=== PATIENT | male | born 1975 | race Caucasian/White ===

== ENCOUNTER 2017-05-30 08:18 | Emergency (ER) | payer BC, OTHER ==
[2017-05-30 08:40] VITALS: TEMP 97.9; O2SAT 99
--- NOTE | 2017-05-30 08:43 | C.PDOC ---
History Of Present Illness 41 yr old male presents to the ER with complaints of right ear pain for the past few days. Patient reports going [place] the [employer] [place] and states the pain started afterwards. Patient denies fever, chills, hearing loss, ear discharge, headache, weakness or numbness. Time Seen by Provider: 05/30/17 08:29 Chief Complaint (Nursing): ENT Problem History Per: Patient History/Exam Limitations: no limitations Onset/Duration Of Symptoms: Days Past Medical History Reviewed: Historical Data, Nursing Documentation, Vital Signs Vital Signs: Last Vital Signs Temp 97.9 F 05/30/17 08:23 Pulse 69 05/30/17 08:23 Resp 16 05/30/17 08:23 BP 113/75 05/30/17 08:23 Pulse Ox 99 05/30/17 08:43 - Medical History PMH: Asthma, Hypercholesterolemia Surgical History: Appendectomy Family History: States: No Known Family Hx - Social History Hx Tobacco Use: No Hx Alcohol Use: No Hx Substance Use: No - Immunization History Hx Tetanus Toxoid Vaccination: No Hx Influenza Vaccination: No Hx Pneumococcal Vaccination: No Review Of Systems Except As Marked, All Systems Reviewed And Found Negative. Constitutional: Negative for: Fever, Chills ENT: Positive for: Ear Pain (Right). Negative for: Ear Discharge Neurological: Negative for: Weakness, Numbness, Headache Physical Exam - Physical Exam Appears: Non-toxic, No Acute Distress Skin: Warm, Dry, No Rash Head: Atraumatic, Normacephalic Ear(s): Left: Normal, Right: Other ((+) Ear canal, mild edema. (-) TM intact without erythema. No redness or tenderness over the mastoid. No preauricular lymph node. ) Throat: Normal, No Erythema, No Exudate, No Drooling Neck: Normal, Normal ROM, Supple Extremity: Normal ROM, No Swelling Neurological/Psych: Oriented x3, Normal Speech ED Course And Treatment O2 Sat by Pulse Oximetry: 99 (RA) Pulse Ox Interpretation: Normal Disposition - Disposition Referrals: Juan Alberto Escobedo MD [Staff Provider] - Dolly Bhatia MD [Non-Staff] - Disposition: HOME/ ROUTINE Disposition Time: 08:43 Condition: GOOD Additional Instructions: Please follow up with your doctor. The contact for the ENT specialist is also provided. Return to the ER for any worsening symptoms, fever, redness or pain or swelling behind the ear or in the face, if you are not any better in 2 days, or for any other concerns. Prescriptions: Ciprofloxacin HCl [Cipro] 500 mg PO BID #14 tablet Ciprofloxacin/Dexamethasone [Ciprodex 0.3%-0.1% 7.5 Ml] 4 drop OT QID #1 bottle Instructions: Otitis Externa (ED) Forms: [facility] (Y[place]i) - Clinical Impression Clinical Impression: Otitis externa - Scribe Statement The provider has reviewed the documentation as recorded by the Timothy Mcpherson Provider Attestation: All medical record entries made by the Timothy were at my direction and personally dictated by me. I have reviewed the chart and agree that the record accurately reflects my personal performance of the history, physical exam, medical decision making, and the department course for this patient. I have also personally directed, reviewed, and agree with the discharge instructions and disposition.
[2017-05-30 09:17] VITALS: BP 110/72; PULSE 68; RESP 18
== END 2017-05-30 09:17 | disposition home or self-care (01) ==
LOC: C.ER 08:18
DX: H60.91 Unspecified otitis externa, right ear (principal)
CPT/HCPCS: 96372; 99283; J1885

== ENCOUNTER 2018-01-05 09:38 | Inpatient (IN) | payer BC ==
[2018-01-05] MEDS ORDERED: Sodium Chloride 0.9% 1,000 ML IV STA (11:31)
[2018-01-05] MEDS ORDERED: Sodium Chloride 0.9% 1,000 ML ONE ×2 (12:07→12:09)
[2018-01-05] MEDS ORDERED: Morphine 4 MG/ML VIAL ONE ×2 (12:08→14:37)
[2018-01-05 12:17] LABS: BASO # 0.1 K/uL (0.0-0.2); BASO % 0.6 % (0.0-2.0); EOS # 0.2 K/uL (0.0-0.7); EOS % 1.6 % (0.0-4.0); HEMOGLOBIN 15.3 g/dL (12.0-18.0); LYMPH # 3.1 K/uL (1.0-4.3); LYMPH % 21.6 % (20.0-40.0); MEAN CORPUSCULAR HEMOGLOBIN 31.8 pg (27.0-31.0); MEAN CORPUSCULAR HGB CONC 34.9 g/dL (33.0-37.0); MEAN PLATELET VOLUME 7.5 fL (7.2-11.7); MONO % 6.8 % (0.0-10.0); NEUT # 10.1 K/uL (1.8-7.0); NEUT % 69.4 % (50.0-75.0); NRBC % 0.2 % (0.0-2.0); RBC 4.81 Mil/uL (4.40-5.90); WHITE BLOOD COUNT 14.5 K/uL (4.8-10.8)
[2018-01-05 12:19] LABS: INR 1.2; PROTHROMBIN TIME 13.4 SECONDS (9.7-12.2)
[2018-01-05 12:20] LABS: MEAN CELL VOLUME 91.1 fL (80.0-94.0)
[2018-01-05 12:26] LABS: ALB/GLOB RATIO 0.9 (1.0-2.1); ALBUMIN 4.1 g/dL (3.5-5.0); ALT/SGPT 39 U/L (21-72); AST/SGOT 31 U/L (17-59); BLOOD UREA NITROGEN 12 mg/dL (9-20); GFR AFRICAN-AMERICAN > 60; GFR NON-AFRICAN AMERICAN > 60
[2018-01-05] MEDS ORDERED: Iodixanol 320 MG/ML 100 ML BOTTLE IV ONE (13:03)
[2018-01-05] MEDS ORDERED: Piperacillin/Tazobact 3.375 gm 100 ML IV STA (13:05)
--- NOTE | 2018-01-05 13:21 | C.PDOC ---
History Of Present Illness 42 year old male presents to the ED c/o perirectal abscess for the past 4 days. Patient reports yesterday had a fever of 101. Patient denies weakness, numbness , CP, SOB, nausea, vomit, diarrhea. Time Seen by Provider: 01/05/18 11:26 Chief Complaint (Nursing): Abnormal Skin Integrity History Per: Patient History/Exam Limitations: no limitations Onset/Duration Of Symptoms: Days Current Symptoms Are (Timing): Still Present Location Of Injury: Left: Buttock (perirectal abscess) Quality Of Symptoms: Painful, Swollen Recent travel outside of the [place]: No Additional History Per: Patient Past Medical History Reviewed: Historical Data, Nursing Documentation, Vital Signs Vital Signs: Last Vital Signs Temp 100.5 F H 01/05/18 13:56 Pulse 100 H 01/05/18 13:56 Resp 18 01/05/18 13:56 BP 109/76 01/05/18 13:56 Pulse Ox 99 01/05/18 16:26 - Medical History PMH: Asthma, Hypercholesterolemia Surgical History: Appendectomy Family History: States: Unknown Family Hx - Social History Hx Tobacco Use: No Hx Alcohol Use: No Hx Substance Use: No - Immunization History Hx Tetanus Toxoid Vaccination: No Hx Influenza Vaccination: No Hx Pneumococcal Vaccination: No Review Of Systems Constitutional: Negative for: Fever, Chills Cardiovascular: Negative for: Chest Pain Respiratory: Negative for: Shortness of Breath Gastrointestinal: Negative for: Abdominal Pain Musculoskeletal: Positive for: Back Pain Skin: Positive for: Other (perirectal abscess) Neurological: Negative for: Weakness, Numbness Physical Exam - Physical Exam Appears: Non-toxic, No Acute Distress Skin: Normal Color, Warm, Dry, Other (opening 1 in abive anal area with purulenrt drainage, tender ) Head: Atraumatic, Normacephalic Eye(s): bilateral: Normal Inspection Nose: No Discharge Oral Mucosa: Moist Back: Other (tenderness to wound 1 inch above anal area) Extremity: Normal ROM, No Tenderness, Capillary Refill (< 2 seconds), No Swelling Pulses: Left Dorsalis Pedis: Normal, Right Dorsalis Pedis: Normal Neurological/Psych: Oriented x3, Normal Motor, Normal Sensation Gait: Steady ED Course And Treatment - Laboratory Results Result Diagrams: 01/05/18 11:31 01/05/18 12:06 ECG: Interpreted By Me, Viewed By Me ECG Rhythm: Sinus Rhythm, R BBB (incomplete) Rate From EC (BPM) O2 Sat by Pulse Oximetry: 99 (On RA) Pulse Ox Interpretation: Normal - CT Scan/US Pelvis CT Other Rad Studies (CT/US): Read By Radiologist, Radiology Report Reviewed CT/US Interpretation: Accession No. : [id number]. Patient Name / ID : LILA Mendez / [id number]. Exam Date : 01/05/2018 13:22:13 ( Approved ). Study Comment : Sex / Age : M / 42Y. Creator : Lucy Pryor. Dictator : Joseph Rose MD. Merit System Director : Reservoir Caretaker : Joseph Rose MD. Approver2 : Report Date : 01/05/2018 13:37:12. My Comment : . PROCEDURE: CT Pelvis with contrast. HISTORY: perirectal abscess. COMPARISON: None. TECHNIQUE: Contiguous axial images of the pelvis with intravenous contrast only. Coronal and sagittal reformats generated. Contrast dose: Visipaque 320, 100 cc. Radiation dose: Total exam DLP = 865.47 mGy-cm. This CT exam was performed using one or more of the following dose reduction techniques: Automated exposure control, adjustment of the mA and/or kV according to patient size, and/or use of iterative reconstruction technique. FINDINGS: In the right perianal space, there is local soft tissue edema posterior to the level of the anus extending to the midline and slightly to the left. Local lucency is appreciate within this density measuring 3.5 x 1.6 cm suggestive of a small abscess. BLADDER: Unremarkable. No mass. REPRODUCTIVE ORGANS: Unremarkable. VISUALIZED BOWEL: Sigmoid diverticulosis is identified without diverticulitis as imaged. A linear hyperdensity at the cecal base may reflect surgical clips status post prior appendectomy. The appendix is not identified. Clinically correlate appear. PERITONEUM: A limited matter perineal fat is identified within a small right inguinal hernia without bowel involvement. No free fluid. No free air. LYMPH NODES: Unremarkable. No enlarged lymph nodes. VASCULATURE: Unremarkable. BONES: No fracture or focal lesion. OTHER FINDINGS: None. IMPRESSION: A small right perianal abscess is appreciated inferiorly slightly to the left measuring 3.5 x 1.6 cm. Nonacute sigmoid diverticulosis. Findings suggest prior right appendectomy. Clinically correlate. Small right inguinal hernia contains only limited amount of peritoneal fat. Progress Note: Patient was treated with Morphine, IVF and Zosyn IVPB. Patient had CT that was pos for perianal abscess, WBC elevated. case was d/w pt's PMD who requested prison classification counselor Surgery consult from Dr. Brink. Case was d /w who requested patient be NPO for surgery and accepted patient for an admission to his service. requested for Internal medicine consult. Contacted , case discussed. Patient developed fever , Tylenol IV was ordered. Medical Decision Making Medical Decision Making: Impression: perirectal abscess Plan: * CT scan pelvis * Labs * Morphine 4 mg IVP * IV fluids * Zosyn 100 ml IV * Blood culture Disposition - Disposition Disposition: HOSPITALIZED Disposition Time: 14:36 Condition: FAIR - Clinical Impression Clinical Impression: Perianal abscess - PA / MEDICAL RECORDS ADMINISTRATOR / Resident Statement MD/DO has reviewed & agrees with the documentation as recorded. - Scribe Statement The provider has reviewed the documentation as recorded by the Scribe Mushtaq Conrad All medical record entries made by the Scribe were at my direction and personally dictated by me. I have reviewed the chart and agree that the record accurately reflects my personal performance of the history, physical exam, medical decision making, and the department course for this patient. I have also personally directed, reviewed, and agree with the discharge instructions and disposition. Decision To Admit - Pt Status Changed To: Hospital Disposition Of: Inpatient - Admit Certification Admit to Inpatient:: After my assessment, the patient will require hospitalization for at least two midnights. This is because of the severity of symptoms shown, intensity of services needed, and/or the medical risk in this patient being treated as an outpatient. - InPatient: Physician Admission Certification: I certify that this patient requires 2 or more midnights of care for the following reason:: Patient will need to go OR and will need more than 2 days of hospitalization. - . Bed Request Type: Regular Patient Diagnosis: Perianal abscess
[2018-01-05] MEDS ORDERED: Piperacillin/Tazobact 3.375 gm 100 ML IVPB ONE (13:45)
--- NOTE | 2018-01-05 14:11 | CT ---
PROCEDURE: CT Pelvis with contrast HISTORY: perirectal abscess COMPARISON: None. TECHNIQUE: Contiguous axial images of the pelvis with intravenous contrast only. Coronal and sagittal reformats generated. Contrast dose: Visipaque 320, 100 cc Radiation dose: Total exam DLP = 865.47 mGy-cm. This CT exam was performed using one or more of the following dose reduction techniques: Automated exposure control, adjustment of the mA and/or kV according to patient size, and/or use of iterative reconstruction technique. FINDINGS: In the right perianal space, there is local soft tissue edema posterior to the level of the anus extending to the midline and slightly to the left. Local lucency is appreciate within this density measuring 3.5 x 1.6 cm suggestive of a small abscess. BLADDER: Unremarkable. No mass. REPRODUCTIVE ORGANS: Unremarkable. VISUALIZED BOWEL: Sigmoid diverticulosis is identified without diverticulitis as imaged. A linear hyperdensity at the cecal base may reflect surgical clips status post prior appendectomy. The appendix is not identified. Clinically correlate appear PERITONEUM: A limited matter perineal fat is identified within a small right inguinal hernia without bowel involvement. No free fluid. No free air. LYMPH NODES: Unremarkable. No enlarged lymph nodes. VASCULATURE: Unremarkable. BONES: No fracture or focal lesion. OTHER FINDINGS: None. IMPRESSION: A small right perianal abscess is appreciated inferiorly slightly to the left measuring 3.5 x 1.6 cm. Nonacute sigmoid diverticulosis. Findings suggest prior right appendectomy. Clinically correlate. Small right inguinal hernia contains only limited amount of peritoneal fat.
[2018-01-05 14:13] LABS: SQUAMOUS EPITHIAL 1 /hpf (0-5); URINE BILIRUBIN NEGATIVE (NEGATIVE); URINE BLOOD NEGATIVE (NEGATIVE); URINE CLARITY Clear (Clear); URINE COLOR Yellow (YELLOW); URINE GLUCOSE (UA) NORMAL (Normal); URINE LEUKOCYTE ESTERASE NEG Leu/uL (Negative); URINE PROTEIN 1+ mg/dL (NEGATIVE)
[2018-01-05] MEDS ORDERED: Acetaminophen IV 1,000 MG in Premixed IV 1 EA IV STA (14:32)
[2018-01-05] MEDS ORDERED: Propofol 10 mg/ml Inj (20 ML) ONE (17:41)
[2018-01-05] MEDS ORDERED: Midazolam 2 MG/2 ML VIAL ONE (17:41)
[2018-01-05] MEDS ORDERED: Oxycodone/Acetaminophen 5/325 mg Tab PO PRN (18:04)
[2018-01-05] MEDS: HYDROmorphone 0.5 mg/0.5 ml ISec IVP PRN ×4 (18:20→18:50)
[2018-01-05] MEDS ORDERED: HYDROmorphone 0.5 mg/0.5 ml ISec ONE (18:30)
[2018-01-05] MEDS ORDERED: Piperacill/Tazo 3.375gm in Dex 3.375 GM/50 ML BAG IVPB SCH (19:00)
[2018-01-05] MEDS: Dextrose 5%/0.45% NS 1,000 ML IV SCH (20:28)
[2018-01-05] MEDS: Morphine 4 MG/ML VIAL IVP PRN (21:11)
--- NOTE | 2018-01-05 23:20 | CP.PCM.HP ---
History of Present Illness - History of Present Illness History of Present Illness: History Of Present Illness 42 year old male presents to the ED c/o perirectal abscess for the past 4 days. Patient reports yesterday had a fever of 101. Patient denies weakness, numbness , CP, SOB, nausea, vomit, diarrhea. Past Patient History - Past Social History Smoking Status: Light Smoker < 10 Cigarettes Daily - CARDIAC Hx Hypercholesterolemia: Yes - PULMONARY Hx Asthma: Yes - MUSCULOSKELETAL/RHEUMATOLOGICAL Hx Falls: No - PSYCHIATRIC Hx Substance Use: No - SURGICAL HISTORY Hx Appendectomy: Yes - ANESTHESIA Hx Anesthesia: Yes Hx Anesthesia Reactions: No Hx Malignant Hyperthermia: No Has any member of the family had a problem w/ anesthesia?: No Meds Allergies/Adverse Reactions: Allergies Allergy/AdvReac Type Severity Reaction Status Date / Time No Known Allergies Allergy Verified 01/05/18 10:20 Results - Vital Signs Recent Vital Signs: Last Vital Signs Temp 98.7 F 01/05/18 20:30 Pulse 85 01/05/18 20:30 Resp 20 01/05/18 20:30 BP 108/74 01/05/18 20:30 Pulse Ox 95 01/05/18 20:30 - Labs Result Diagrams: 01/05/18 11:31 01/05/18 12:06 Labs: Laboratory Results - last 24 hr 01/05/18 01/05/18 01/05/18 11:31 12:06 12:06 WBC 14.5 H RBC 4.81 Hgb 15.3 Hct 43.8 MCV 91.1 D MCH 31.8 H MCHC 34.9 RDW 13.0 Plt Count 244 MPV 7.5 Neut % (Auto) 69.4 Lymph % (Auto) 21.6 Dane % (Auto) 6.8 Eos % (Auto) 1.6 Baso % (Auto) 0.6 Neut # (Auto) 10.1 H Lymph # (Auto) 3.1 Dane # (Auto) 1.0 H Eos # (Auto) 0.2 Baso # (Auto) 0.1 PT 13.4 H INR 1.2 APTT 30 Sodium 141 Potassium 4.3 Chloride 100 Carbon Dioxide 26 Anion Gap 19 BUN 12 Creatinine 1.0 Est GFR ( Amer) > 60 Est GFR (Non-Af Amer) > 60 Random Glucose 87 Calcium 9.0 Total Bilirubin 1.1 AST 31 ALT 39 Alkaline Phosphatase 63 Total Protein 8.7 H Albumin 4.1 Globulin 4.5 H Albumin/Globulin Ratio 0.9 L Urine Color Urine Clarity Urine pH Ur Specific [place] Urine Protein Urine Glucose (UA) Urine Ketones Urine Blood Urine Nitrate Urine Bilirubin Urine Urobilinogen Ur Leukocyte Esterase Urine WBC (Auto) Ur Squamous Epith Cells 01/05/18 14:05 WBC RBC Hgb Hct MCV MCH MCHC RDW Plt Count MPV Neut % (Auto) Lymph % (Auto) Dane % (Auto) Eos % (Auto) Baso % (Auto) Neut # (Auto) Lymph # (Auto) Dane # (Auto) Eos # (Auto) Baso # (Auto) PT INR APTT Sodium Potassium Chloride Carbon Dioxide Anion Gap BUN Creatinine Est GFR ( Amer) Est GFR (Non-Af Amer) Random Glucose Calcium Total Bilirubin AST ALT Alkaline Phosphatase Total Protein Albumin Globulin Albumin/Globulin Ratio Urine Color Yellow Urine Clarity Clear Urine pH 5.0 Ur Specific [place] 1.040 H Urine Protein 1+ H Urine Glucose (UA) Normal Urine Ketones Negative Urine Blood Negative Urine Nitrate Negative Urine Bilirubin Negative Urine Urobilinogen 4.0 Ur Leukocyte Esterase Neg Urine WBC (Auto) 1 Ur Squamous Epith Cells 1 Assessment & Plan (1) Perianal abscess Status: Acute
[2018-01-06] MEDS: Morphine 4 MG/ML VIAL IVP PRN ×6 (01:20→22:42)
[2018-01-06] MEDS: Piperacill/Tazo 3.375gm in Dex 3.375 GM/50 ML BAG IVPB SCH ×4 (03:02→21:40)
--- NOTE | 2018-01-06 03:04 | OP ---
PROCEDURE DATE: 01/05/2018 PREOPERATIVE DIAGNOSIS: Rectal abscess. POSTOPERATIVE DIAGNOSES: Rectal and pelvic abscess with fistula. PROCEDURE PERFORMED: Proctosigmoidoscopy, anoscopy, incision and drainage of rectal and pelvic abscess with fistulotomy. SURGEON: Jesse Brink MD ANESTHESIA: General. BLOOD LOSS: 30 mL. POSTOP CONDITION: Stable. INDICATIONS FOR SURGERY: This is a 42-year-old male with a painful rectal abscess admitted through the emergency room, now taken to the operating room on the day of admission for urgent drainage. GROSS FINDINGS: The patient had an abscess located at the 5 o'clock level of the anus. It was associated with a fistula into the midline of the anal canal and consistent with Goodsall's rule. The abscess was extended into the ischiorectal space, making essentially a pelvic abscess also. DESCRIPTION OF PROCEDURE: The patient was taken to the operating room. General anesthesia was administered. Proctosigmoidoscopy was carried out but limited due to poor patient prep and rectal stool. Next, anoscopy was carried out with the above findings. An incision was made into the abscess and a probe was easily passed into the anal canal. The overlying tissue was divided and bled vigorously. Bleeding blood vessel was repaired. The wound was irrigated with saline. The pus was drained and cultured. The pus was thoroughly explored into the ischiorectal space and also drained. More cultures were taken. Wound was irrigated with saline. A partial tissue flap closure was performed. Central portion of wound was packed open with saline gauze. The patient tolerated procedure well. Returned to recovery room in stable condition. Jesse Brink MD
[2018-01-06] MEDS: Lactated Ringer's 1,000 ML IV SCH (04:15)
[2018-01-06] MEDS: Dextrose 5%/0.45% NS 1,000 ML IV SCH ×3 (06:45→18:40)
[2018-01-06 06:53] LABS: BASO # 0.1 K/uL (0.0-0.2); BASO % 0.5 % (0.0-2.0); EOS # 0.2 K/uL (0.0-0.7); EOS % 1.1 % (0.0-4.0); LYMPH # 2.8 K/uL (1.0-4.3); MEAN CELL VOLUME 90.8 fL (80.0-94.0); MEAN CORPUSCULAR HEMOGLOBIN 31.2 pg (27.0-31.0); MEAN CORPUSCULAR HGB CONC 34.4 g/dL (33.0-37.0); MEAN PLATELET VOLUME 7.6 fL (7.2-11.7); MONO # 1.1 K/uL (0.0-0.8); MONO % 7.6 % (0.0-10.0); NEUT # 9.9 K/uL (1.8-7.0); NEUT % 70.8 % (50.0-75.0); RBC 4.1 Mil/uL (4.40-5.90); RED CELL DISTRIBUTION WIDTH 12.7 % (11.5-14.5)
[2018-01-06 07:03] LABS: HEMOGLOBIN 12.8 g/dL (12.0-18.0)
[2018-01-06 07:12] LABS: BLOOD UREA NITROGEN 12 mg/dL (9-20); CALCIUM 8.4 mg/dl (8.6-10.4); GFR AFRICAN-AMERICAN > 60; GFR NON-AFRICAN AMERICAN > 60
[2018-01-06] MEDS ORDERED: Midazolam 2 MG/2 ML VIAL ONE (15:33)
[2018-01-06] MEDS ORDERED: Propofol 10 mg/ml Inj (20 ML) ONE (15:33)
[2018-01-06] MEDS: HYDROmorphone 0.5 mg/0.5 ml ISec IVP PRN ×3 (16:17→16:48)
[2018-01-06] MEDS ORDERED: HYDROmorphone 0.5 mg/0.5 ml ISec ONE ×2 (16:17→16:27)
[2018-01-06] MEDS ORDERED: Lactated Ringer's 1,000 ML IV SCH (16:30)
--- NOTE | 2018-01-06 17:22 | CP.PCM.CON ---
History of Present Illness - History of Present Illness History of Present Illness: 42 year old male presents to the ED c/o perirectal abscess for the past 4 days. Patient reports yesterday had a fever of 101. Patient denies weakness, numbness , CP, SOB, nausea, vomit, diarrhea. Referred for ID eval for rx perirectal abscess For I and D in OR Dr Brink - Medical History PMH: Asthma, Hypercholesterolemia Surgical History: Appendectomy Family History: States: Unknown Family Hx Review of Systems - Constitutional Constitutional: As Per HPI - EENT Eyes: absent: As Per HPI, Blind Spots, Blurred Vision, Change in Vision, Decreased Night Vision, Diplopia, Discharge, Dry Eye, Exophthalmos, Floaters, Irritation, Itchy Eyes, Loss of Peripheral Vision, Pain, Photophobia, Requires Corrective Lenses, Sees Flashes, Spots in Vision, Tunnel Vision, Other Visual Disturbances, Loss of Vision, Other Ears: absent: As Per HPI, Decreased Hearing, Ear Discharge, Ear Pain, Tinnitus, Abnormal Hearing, Disequilibrium, Dizziness, Other Nose/Mouth/Throat: absent: As Per HPI, Epistaxis, Nasal Congestion, Nasal Discharge, Nasal Obstruction, Nasal Trauma, Nose Pain, Post Nasal Drip, Sinus Pain, Sinus Pressure, Bleeding Gums, Change in Voice, Dental Pain, Dry Mouth, Dysphagia, Halitosis, Hoarsness, Lip Swelling, Mouth Lesions, Mouth Pain, Odynophagia, Sore Throat, Throat Swelling, Tongue Swelling, Facial Pain, Neck Pain, Neck Mass, Other - Cardiovascular Cardiovascular: absent: As Per HPI, Acrocyanosis, Chest Pain, Chest Pain at Rest , Chest Pain with Activity, Claudication, Diaphoresis, Dyspnea, Dyspnea on Exertion, Edema, Irregular Heart Rhythm, Pain Radiating to Arm/Neck/Jaw, Leg Edema, Leg Ulcers, Lightheadedness, Orthopnea, Palpitations, Paroxysmal Nocturnal Dyspnea, Pedal Edema, Radiating Pain, Rapid Heart Rate, Slow Heart Rate, Syncope, Other - Respiratory Respiratory: absent: As Per HPI, Cough, Dyspnea, Hemoptysis, Dyspnea on Exertion , Wheezing, Snoring, Stridor, Pain on Inspiration, Chest Congestion, Excessive Mucous Production, Change in Mucous Color, Pain with Coughing, Other - Gastrointestinal Gastrointestinal: As Per HPI - Genitourinary Genitourinary: absent: As Per HPI, Change in Urinary Stream, Difficulty Urinating, Dysuria, Flank Pain, Hematuria, Pyuria, Nocturia, Urinary Incontinence, Urinary Frequency, Urinary Hesitance, Urinary Urgency, Voiding Freq/Small Amts, Freq UTI, Hx Renal/Bladder Calculi, Hx /Renal Surgery, Bladder Distension, Other - Musculoskeletal Musculoskeletal: absent: As Per HPI, Abnormal Gait, Arthralgias, Atrophy, Back Pain, Deformity, Joint Swelling, Limited Range of Motion, Loss of Height, Muscle Cramps, Muscle Weakness, Myalgias, Neck Pain, Numbness, Radiating Pain into Limb, Stiffness, Tingling, Other - Integumentary Integumentary: As Per HPI, Skin Pain, Wounds - Neurological Neurological: absent: As Per HPI, Abnormal Gait, Abnormal Hearing, Abnormal Movements, Abnormal Speech, Behavioral Changes, Burning Sensations, Confusion, Convulsions, Disequilibrium, Dizziness, Numbness, Focal Weakness, Frequent Falls , Headaches, Lack of Coordination, Loss of Vision, Memory Loss, Paresthesias, Radicular Pain, Restless Legs, Sensory Deficit, Syncope, Tingling, Tremor, Vertigo, Weakness, Other Visual Disturbances, Other - Psychiatric Psychiatric: absent: As Per HPI, Abnormal Sleep Pattern, Anhedonia, Anxiety, Auditory Hallucinations, Behavioral Changes, Change in Appetite, Change in Libido, Confusion, Depression, Difficulty Concentrating, Hallucinations, Homicidal Ideation, Hopelessness, Irritability, Memory Loss, Mood Swings, Panic Attacks, Paranoia, Suicidal Ideation, Visual Hallucinations, Tactile Hallucinations, Other - Endocrine Endocrine: absent: As Per HPI, Change in Body Appearance, Change in Libido, Cold Intolorance, Deepening of Voice, Excessive Sweating, Fatigue, Flushing, Heat Intolorance, Increase in Ring/Shoe/Hat Size, Palpitations, Polydipsia, Polyphagia, Polyuria, Other - Hematologic/Lymphatic Hematologic: absent: As Per HPI, Easy Bleeding, Easy Bruising, Lymphadenopathy, Other Past Patient History - Past Social History Smoking Status: Light Smoker < 10 Cigarettes Daily - CARDIAC Hx Hypercholesterolemia: Yes - PULMONARY Hx Asthma: Yes - MUSCULOSKELETAL/RHEUMATOLOGICAL Hx Falls: No - PSYCHIATRIC Hx Substance Use: No - SURGICAL HISTORY Hx Appendectomy: Yes - ANESTHESIA Hx Anesthesia: Yes Hx Anesthesia Reactions: No Hx Malignant Hyperthermia: No Has any member of the family had a problem w/ anesthesia?: No Meds Allergies/Adverse Reactions: Allergies Allergy/AdvReac Type Severity Reaction Status Date / Time No Known Allergies Allergy Verified 01/05/18 10:20 - Medications Medications: Current Medications Docusate Sodium (Colace) 100 mg PO BID [facility] Last Admin: 01/06/18 09:55 Dose: Not Given Hydromorphone HCl (Dilaudid) 0.5 mg IVP Q10M PRN PRN Reason: Pain, moderate (4-7) Stop: 01/06/18 18:27 Dextrose/Sodium Chloride (Dextrose 5%/0.45% Ns 1000 Ml) 1,000 mls @ 80 mls/hr IV .[id number] [facility] Last Admin: 01/06/18 13:45 Dose: 80 mls/hr Lactated Ringer's (Lactated Ringer's) 1,000 mls @ 100 mls/hr IV .Q10H [facility] Last Admin: 01/06/18 04:15 Dose: Not Given Piperacillin Sod/Tazobactam Sod (Zosyn 3.375 Gm Iv Premix) 3.375 gm in 50 mls @ 100 mls/hr IVPB Q6H [facility] PRN Reason: Protocol Last Admin: 01/06/18 14:16 Dose: 100 mls/hr Lactated Ringer's (Lactated Ringer's) 1,000 mls @ 150 mls/hr IV .Q6H40M [facility] Morphine Sulfate (Morphine) 5 mg IVP Q4 PRN PRN Reason: Pain, severe (8-10) Last Admin: 01/06/18 14:13 Dose: 5 mg Ondansetron HCl (Zofran Inj) 4 mg IVP Q6 PRN PRN Reason: Nausea/Vomiting Last Admin: 01/05/18 21:08 Dose: 4 mg Ondansetron HCl (Zofran Inj) 4 mg IVP ONCE PRN PRN Reason: Nausea/Vomiting Stop: 01/06/18 18:28 Oxycodone/Acetaminophen (Percocet 5/325 Mg Tab) 2 tab PO Q4H PRN PRN Reason: pain Stop: 01/08/18 18:05 Pantoprazole Sodium (Protonix Inj) 40 mg IVP DAILY [facility] Last Admin: 01/06/18 09:59 Dose: 40 mg Pneumococcal Polyvalent Vaccine (Pneumovax 23 Vaccine) 0.5 ml IM .ONCE ONE Stop: 01/07/18 10:01 Physical Exam - Constitutional Appears: Non-toxic, Chronically Ill - Head Exam Head Exam: NORMOCEPHALIC - Eye Exam Eye Exam: PERRL. absent: Scleral icterus - ENT Exam ENT Exam: Mucous Membranes Dry, Normal External Ear Exam - Neck Exam Neck exam: Negative for: Lymphadenopathy - Respiratory Exam Respiratory Exam: Decreased Breath Sounds, Clear to Auscultation Bilateral - Cardiovascular Exam Cardiovascular Exam: REGULAR RHYTHM, +S1, +S2 - GI/Abdominal Exam GI & Abdominal Exam: Diminished Bowel Sounds, Soft. absent: Tenderness - Rectal Exam Rectal Exam: Deferred - Exam Exam: NORMAL INSPECTION - Extremities Exam Extremities exam: Positive for: pedal pulses present. Negative for: calf tenderness, pedal edema, tenderness - Back Exam Back exam: absent: CVA tenderness (L), CVA tenderness (R) - Neurological Exam Neurological exam: Alert, CN II-XII Intact, Oriented x3, Reflexes Normal - Psychiatric Exam Psychiatric exam: Normal Mood - Skin Skin Exam: Dry Results - Vital Signs Recent Vital Signs: Last Vital Signs Temp 100 F H 01/06/18 16:08 Pulse 94 H 01/06/18 16:55 Resp 11 L 01/06/18 16:55 BP 110/65 01/06/18 16:55 Pulse Ox 100 01/06/18 16:55 - Labs Result Diagrams: 01/06/18 06:40 01/06/18 06:40 Labs: Laboratory Results - last 24 hr 01/06/18 01/06/18 06:40 06:40 WBC 14.0 H RBC 4.10 L Hgb 12.8 D Hct 37.2 MCV 90.8 MCH 31.2 H MCHC 34.4 RDW 12.7 Plt Count 227 MPV 7.6 Neut % (Auto) 70.8 Lymph % (Auto) 20.0 [place] % (Auto) 7.6 Eos % (Auto) 1.1 Baso % (Auto) 0.5 Neut # (Auto) 9.9 H Lymph # (Auto) 2.8 [place] # (Auto) 1.1 H Eos # (Auto) 0.2 Baso # (Auto) 0.1 Sodium 137 Potassium 3.8 Chloride 100 Carbon Dioxide 26 Anion Gap 15 BUN 12 Creatinine 1.1 Est GFR ( Amer) > 60 Est GFR (Non-Af Amer) > 60 Random Glucose 102 Calcium 8.4 L Assessment & Plan (1) Perianal abscess Status: Acute - Assessment and Plan (Free Text) Assessment: await cultures from OR will renew IV antibiotics cont wound care and pain management
--- NOTE | 2018-01-06 22:34 | CP.PCM.PN ---
Subjective - Date & Time of Evaluation Date of Evaluation: 01/06/18 Time of Evaluation: 18:40 - Subjective Subjective: 42 year old male presents to the ED c/o perirectal abscess for the past 4 days. Patient reports yesterday had a fever of 101. Patient denies weakness, numbness , CP, SOB, nausea, vomit, diarrhea. Referred for ID eval for rx perirectal abscess For I and D in OR Dr Brink Objective - Vital Signs/Intake and Output Vital Signs (last 24 hours): Temp Pulse Resp BP Pulse Ox 99.3 F 90 20 97/60 L 95 01/06/18 17:30 01/06/18 17:30 01/06/18 17:30 01/06/18 17:30 01/06/18 17:30 Intake and Output: 01/06/1818 18:59 06:59 Intake Total 1150 Balance 1150 - Medications Medications: Current Medications Docusate Sodium (Colace) 100 mg PO BID [facility] Last Admin: 01/06/18 18:34 Dose: 100 mg Dextrose/Sodium Chloride (Dextrose 5%/0.45% Ns 1000 Ml) 1,000 mls @ 80 mls/hr IV .[id number] [facility] Last Admin: 01/06/18 18:40 Dose: 80 mls/hr Lactated Ringer's (Lactated Ringer's) 1,000 mls @ 100 mls/hr IV .Q10H [facility] Last Admin: 01/06/18 04:15 Dose: Not Given Piperacillin Sod/Tazobactam Sod (Zosyn 3.375 Gm Iv Premix) 3.375 gm in 50 mls @ 100 mls/hr IVPB Q6H [facility] PRN Reason: Protocol Last Admin: 01/06/18 21:40 Dose: 100 mls/hr Lactated Ringer's (Lactated Ringer's) 1,000 mls @ 150 mls/hr IV .Q6H40M [facility] Morphine Sulfate (Morphine) 5 mg IVP Q4 PRN PRN Reason: Pain, severe (8-10) Last Admin: 01/06/18 18:34 Dose: 5 mg Ondansetron HCl (Zofran Inj) 4 mg IVP Q6 PRN PRN Reason: Nausea/Vomiting Last Admin: 04/17/18 21:08 Dose: 4 mg Oxycodone/Acetaminophen (Percocet 5/325 Mg Tab) 2 tab PO Q4H PRN PRN Reason: pain Stop: 01/08/18 18:05 Pantoprazole Sodium (Protonix Inj) 40 mg IVP DAILY [facility] Last Admin: 01/06/18 09:59 Dose: 40 mg Pneumococcal Polyvalent Vaccine (Pneumovax 23 Vaccine) 0.5 ml IM .ONCE ONE Stop: 01/07/18 10:01 - Labs Labs: 01/06/18 06:40 01/06/18 06:40 PT 13.4 SECONDS (9.7-12.2) H 01/05/18 12:06 INR 1.2 01/05/18 12:06 APTT 30 SECONDS (21-34) 01/05/18 12:06 Assessment and Plan (1) Perianal abscess Status: Acute
[2018-01-07] MEDS: Lactated Ringer's 1,000 ML IV SCH (00:30)
[2018-01-07] MEDS: Piperacill/Tazo 3.375gm in Dex 3.375 GM/50 ML BAG IVPB SCH ×3 (03:09→14:20)
[2018-01-07] MEDS: Dextrose 5%/0.45% NS 1,000 ML IV SCH (08:05)
--- NOTE | 2018-01-07 08:31 | OP ---
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 PROCEDURE PERFORMED: Change of packing, redrainage of rectal and pelvic abscess with debridement, and partial advancement flap closure. SURGEON: Jesse Brink MD ANESTHESIA: General. BLOOD LOSS: 40 mL. POSTOPERATIVE CONDITION: Stable. DESCRIPTION OF PROCEDURE: The patient was taken back to the operating room. General anesthesia was administered. He was placed in lithotomy position and the packing was removed, and the area was prepped and draped. There was fair amount of bleeding. The packing was removed, and this area was isolated, and the blood vessel was repaired. In the pelvis, the wound was then pulse irrigated with saline and Kantrex solution and the remaining collections were drained and cultured. Bleeding was controlled using the Bovie. Partial tissue flap closure was performed with Monocryl. Central portion of wound was again packed open with saline gauze. The patient tolerated the procedure well. Returned to recovery room in stable condition. Jesse Brink MD
[2018-01-07] MEDS ORDERED: Pneumococcal 23-Valent Vaccine IM ONE (10:00)
--- NOTE | 2018-01-07 12:07 | CARD ---
APPROVED REPORT EKG Measurement Heart [id number] <Conclusion> Normal sinus rhythm Incomplete right bundle branch block Borderline ECG
[2018-01-07] MEDS ORDERED: HYDROmorphone 0.5 mg/0.5 ml ISec IVP PRN (16:02)
[2018-01-07] MEDS ORDERED: Midazolam 2 MG/2 ML VIAL ONE (16:09)
[2018-01-07] MEDS ORDERED: Propofol 10 mg/ml Inj (20 ML) ONE ×2 (16:09)
[2018-01-07] MEDS ORDERED: Bupivacaine HCl 0.25% PF (30 ml) Inj ONE (16:27)
[2018-01-07] MEDS ORDERED: Albuterol HFA 90 mcg/actuation (8 g) ONE (17:07)
[2018-01-07 17:31] VITALS: O2SAT 98
[2018-01-07 18:10] VITALS: BP 136/68; PULSE 87; RESP 12; TEMP 99.4
--- NOTE | 2018-01-07 23:21 | CP.PCM.DIS ---
Provider - Provider Date of Admission: 01/05/18 14:32 Attending physician: Jesse Brink MD Diagnosis - Discharge Diagnosis (1) Perianal abscess Status: Acute Hospital Course - Lab Results Lab Results: Micro Results 01/05/18 12:00 Blood Blood Culture - Preliminary NO GROWTH AFTER 48 HOURS 01/05/18 11:30 Blood Blood Culture - Preliminary NO GROWTH AFTER 48 HOURS 01/05/18 Unknown Abscess - Perirectal Gram Stain - Final 01/05/18 Unknown Abscess - Perirectal Wound Culture - Preliminary No growth. Most Recent Lab Values WBC 14.0 K/uL (4.8-10.8) H 01/06/18 06:40 RBC 4.10 Mil/uL (4.40-5.90) L 01/06/18 06:40 Hgb 12.8 g/dL (12.0-18.0) D 01/06/18 06:40 Hct 37.2 % (35.0-51.0) 01/06/18 06:40 MCV 90.8 fL (80.0-94.0) 01/06/18 06:40 MCH 31.2 pg (27.0-31.0) H 01/06/18 06:40 MCHC 34.4 g/dL (33.0-37.0) 01/06/18 06:40 RDW 12.7 % (11.5-14.5) 01/06/18 06:40 Plt Count 227 K/uL (130-400) 01/06/18 06:40 MPV 7.6 fL (7.2-11.7) 01/06/18 06:40 Neut % (Auto) 70.8 % (50.0-75.0) 01/06/18 06:40 Lymph % (Auto) 20.0 % (20.0-40.0) 01/06/18 06:40 [place] % (Auto) 7.6 % (0.0-10.0) 01/06/18 06:40 Eos % (Auto) 1.1 % (0.0-4.0) 01/06/18 06:40 Baso % (Auto) 0.5 % (0.0-2.0) 01/06/18 06:40 Neut # (Auto) 9.9 K/uL (1.8-7.0) H 01/06/18 06:40 Lymph # (Auto) 2.8 K/uL (1.0-4.3) 01/06/18 06:40 [place]le # (Auto) 1.1 K/uL (0.0-0.8) H 01/06/18 06:40 Eos # (Auto) 0.2 K/uL (0.0-0.7) 01/06/18 06:40 Baso # (Auto) 0.1 K/uL (0.0-0.2) 01/06/18 06:40 PT 13.4 SECONDS (9.7-12.2) H 01/05/18 12:06 INR 1.2 01/05/18 12:06 APTT 30 SECONDS (21-34) 01/05/18 12:06 Sodium 137 mmol/L (132-148) 01/06/18 06:40 Potassium 3.8 mmol/L (3.6-5.2) 01/06/18 06:40 Chloride 100 mmol/L (98-107) 01/06/18 06:40 Carbon Dioxide 26 mmol/L (22-30) 01/06/18 06:40 Anion Gap 15 (10-20) 01/06/18 06:40 BUN 12 mg/dL (9-20) 01/06/18 06:40 Creatinine 1.1 mg/dL (0.8-1.5) 01/06/18 06:40 Est GFR ( Amer) > 60 01/06/18 06:40 Est GFR (Non-Af Amer) > 60 01/06/18 06:40 Random Glucose 102 mg/dL (75-110) 01/06/18 06:40 Calcium 8.4 mg/dl (8.6-10.4) L 01/06/18 06:40 Total Bilirubin 1.1 mg/dL (0.2-1.3) 01/05/18 12:06 AST 31 U/L (17-59) 01/05/18 12:06 ALT 39 U/L (21-72) 01/05/18 12:06 Alkaline Phosphatase 63 U/L (38-126) 01/05/18 12:06 Total Protein 8.7 g/dL (6.3-8.3) H 01/05/18 12:06 Albumin 4.1 g/dL (3.5-5.0) 01/05/18 12:06 Globulin 4.5 gm/dL (2.2-3.9) H 01/05/18 12:06 Albumin/Globulin Ratio 0.9 (1.0-2.1) L 01/05/18 12:06 Urine Color Yellow (YELLOW) 01/05/18 14:05 Urine Clarity Clear (Clear) 01/05/18 14:05 Urine pH 5.0 (5.0-8.0) 01/05/18 14:05 Ur Specific Rewey 1.040 (1.003-1.030) H 01/05/18 14:05 Urine Protein 1+ mg/dL (NEGATIVE) H 01/05/18 14:05 Urine Glucose (UA) Normal mg/dL (Normal) 01/05/18 14:05 Urine Ketones Negative mg/dL (NEGATIVE) 01/05/18 14:05 Urine Blood Negative (NEGATIVE) 01/05/18 14:05 Urine Nitrate Negative (NEGATIVE) 01/05/18 14:05 Urine Bilirubin Negative (NEGATIVE) 01/05/18 14:05 Urine Urobilinogen 4.0 mg/dL (0.2-1.0) 01/05/18 14:05 Ur Leukocyte Esterase Neg Ghada/uL (Negative) 01/05/18 14:05 Urine WBC (Auto) 1 /hpf (0-5) 01/05/18 14:05 Ur Squamous Epith Cells 1 /hpf (0-5) 01/05/18 14:05 Discharge Exam - Head Exam Head Exam: NORMOCEPHALIC Discharge Plan - Follow Up Plan Condition: FAIR Disposition: HOME/ ROUTINE Instructions: Metronidazole (Systemic), Anal Abscess and Fistula (DC), Docusate , Tramadol Referrals: Jesse Brink MD [Staff Provider] -
--- NOTE | 2018-01-08 01:13 | OP ---
PROCEDURE DATE: 01/07/2018. PREOPERATIVE DIAGNOSIS: Rectal and pelvic abscess. POSTOPERATIVE DIAGNOSIS: Rectal and pelvic abscess. PROCEDURE PERFORMED: Incision, drainage of rectal and pelvic abscess with debridement and wound closure. SURGEON: Jesse Brink MD. ANESTHESIA: General. ESTIMATED BLOOD LOSS: 30 mL. POSTOPERATIVE CONDITION: Stable. INDICATIONS FOR SURGERY: This is a 42-year-old male who had an extensive rectal and pelvic abscess, represents in a stage procedure will undergo debridement and closure. PROCEDURE: The patient taken to the operating room, general anesthesia was administered, placed lithotomy position. The rectal area was prepped and draped after the previous packing was removed. The wound was aggressively debrided and irrigated. Bleeding was controlled using a Bovie and a larger pelvic blood vessel was repaired. The wound was irrigated. Tissue flaps were raised and an advancement flap closure was performed loosely. The patient tolerated procedure well, returned to recovery room in stable condition. Jesse Brink MD
== END 2018-01-07 19:45 | disposition home or self-care (01) | DRG 329 ==
LOC: C.ER 09:38 → C.9E 14:32 → C.3T 17:42
PROVIDERS: ADMIT Surgery; ATTEND Surgery
PROC: 0D9P8ZZ Drainage of Rectum, Via Natural or Artificial Opening Endoscopic (ICD-10-PCS; principal; 2018-01-05 16:15)
PROC: 0D9P8ZZ Drainage of Rectum, Via Natural or Artificial Opening Endoscopic (ICD-10-PCS; 2018-01-06)
PROC: 0DQP3ZZ Repair Rectum, Percutaneous Approach (ICD-10-PCS; 2018-01-07)
PROC: 0D9P8ZZ Drainage of Rectum, Via Natural or Artificial Opening Endoscopic (ICD-10-PCS; 2018-01-07)
DX: K61.2 Anorectal abscess (principal); K65.1 Peritoneal abscess; K60.3 Anal fistula; F17.210 Nicotine dependence, cigarettes, uncomplicated; J45.909 Unspecified asthma, uncomplicated

== ENCOUNTER 2018-01-18 09:59 | Inpatient (IN) | payer BC ==
--- NOTE | 2018-01-18 11:14 | C.PDOC ---
History Of Present Illness 42-year-old male, presents to the emergency department for I&D of heena-rectal abscess by Dr Brink. Patient states, he has had this abscess for the past 4- 5 days. Initially, it was drained by Dr Brink, and was improving, but began draining again, prompting visit. Patient denies any fever, nausea/vomiting. Time Seen by Provider: 01/18/18 10:51 Chief Complaint (Nursing): Abnormal Skin Integrity History Per: Patient History/Exam Limitations: no limitations Past Medical History Reviewed: Historical Data, Nursing Documentation, Vital Signs Vital Signs: Last Vital Signs Temp 98 F 01/18/18 11:26 Pulse 78 01/18/18 11:26 Resp 18 01/18/18 11:26 BP 136/75 01/18/18 11:26 Pulse Ox 97 01/18/18 12:38 - Medical History PMH: Asthma, Hypercholesterolemia Surgical History: Appendectomy - [facility] Procedures DRAINAGE OF RECTUM, ENDO (01/05/18) REPAIR RECTUM, PERCUTANEOUS APPROACH (01/05/18) Family History: States: No Known Family Hx - Social History Hx Tobacco Use: No Hx Alcohol Use: No Hx Substance Use: No - Immunization History Hx Tetanus Toxoid Vaccination: Yes Hx Influenza Vaccination: No Hx Pneumococcal Vaccination: No Review Of Systems Constitutional: Negative for: Fever Gastrointestinal: Positive for: Rectal Pain (abscess). Negative for: Vomiting Physical Exam - Physical Exam Appears: Non-toxic, No Acute Distress Skin: Warm, Dry, No Rash Head: Atraumatic, Normacephalic Eye(s): bilateral: Normal Inspection, EOMI Oral Mucosa: Moist Lips: Normal Appearing Neck: Normal ROM Chest: Symmetrical Cardiovascular: Rhythm Regular, No Murmur Respiratory: Normal Breath Sounds, No Accessory Muscle Use Gastrointestinal/Abdominal: Soft, No Tenderness Rectal: No Hemorrhoids, Other (perianal erythema) Extremity: Normal ROM, No Deformity, No Swelling Neurological/Psych: Oriented x3, Normal Speech ED Course And Treatment O2 Sat by Pulse Oximetry: 97 (RA) Pulse Ox Interpretation: Normal Medical Decision Making Medical Decision Making: Patient with heena-rectal abscess [address] Brink who wants patient admitted to his service and will take patient to OR. Keep NPO Disposition Counseled Patient/Family Regarding: Diagnosis, Need For Followup - Disposition Disposition: HOSPITALIZED Disposition Time: 11:13 Condition: STABLE - POA Present On Arrival: None - Clinical Impression Clinical Impression: Heena-rectal abscess - Scribe Statement The provider has reviewed the documentation as recorded by the Scribe (Lorraine Akbar) All medical record entries made by the Scribe were at my direction and personally dictated by me. I have reviewed the chart and agree that the record accurately reflects my personal performance of the history, physical exam, medical decision making, and the department course for this patient. I have also personally directed, reviewed, and agree with the discharge instructions and disposition. Decision To Admit - Pt Status Changed To: Hospital Disposition Of: Inpatient - Admit Certification Admit to Inpatient:: After my assessment, the patient will require hospitalization for at least two midnights. This is because of the severity of symptoms shown, intensity of services needed, and/or the medical risk in this patient being treated as an outpatient. - InPatient: Physician Admission Certification: I certify that this patient requires 2 or more midnights of care for the following reason:: Patient with recurrent heena- rectal abscess and needs surgical drainage - . Bed Request Type: Regular Admitting Physician: Jesse Brink Patient Diagnosis: Heena-rectal abscess
[2018-01-18] MEDS ORDERED: Midazolam 2 MG/2 ML VIAL ONE (15:04)
[2018-01-18] MEDS ORDERED: Propofol 10 mg/ml Inj (20 ML) ONE (15:05)
[2018-01-18] MEDS ORDERED: metroNIDAZOLE IV 500 mg/100 ml 500 MG/100 ML BAG ONE (15:14)
[2018-01-18] MEDS ORDERED: ceFAZolin 1 gm in NS 1 GM/100 ML BAG IVPB ONE (15:14)
[2018-01-18] MEDS ORDERED: Oxycodone/Acetaminophen 5/325 mg Tab PO PRN (15:42)
[2018-01-18] MEDS: HYDROmorphone 0.5 mg/0.5 ml ISec IVP PRN ×4 (15:55→16:45)
[2018-01-18] MEDS ORDERED: Dextrose 5%/0.45% NS 1,000 ML IV ONE ×2 (16:33)
[2018-01-18] MEDS: ceFAZolin 1 GM in Sodium Chloride 0.9% 100 ML IVPB SCH (17:31)
[2018-01-18] MEDS: Dextrose 5%/0.45% NS 1,000 ML IV SCH (18:54)
[2018-01-18] MEDS: metroNIDAZOLE IV 500 mg/100 ml 250 MG in Premixed IV 1 EA IVPB SCH (21:11)
--- NOTE | 2018-01-19 01:06 | OP ---
PROCEDURE DATE: 01/18/2018 PREOPERATIVE DIAGNOSIS: Rectal abscess with fistula. POSTOPERATIVE DIAGNOSIS: Rectal abscess with fistula. PROCEDURE PERFORMED: Incision and drainage of new rectal and pelvic abscess with fistula. SURGEON: Jesse Brink MD ANESTHESIA: General. BLOOD LOSS: 30 mL. POSTOPERATIVE CONDITION: Stable. INDICATIONS FOR SURGERY: This is a 42-year-old male, 2 weeks status post a perianal fistulotomy for anal fistula and a small abscess. He now represents with a new abscess at the 8 o'clock level near the anus for incision and drainage. GROSS FINDINGS: There was an abscess at the 8 o'clock level of the anus which extended into the pelvic space and also went to the anal canal underneath the intersphincteric type fistula. PROCEDURE IN DETAIL: The patient was taken to the operating room, general anesthesia administered, placed in lithotomy position. The rectal area was prepped and draped. The abscess was drained and cultured. A probe was passed into the anus. The overlying tissue was divided. Bleeding was controlled using Bovie, and a larger blood vessel was repaired. The abscess was then traced up into the levator space which was also drained. The wound was irrigated with copious amounts of saline solution, and partial tissue transfer closure was performed. The central portion of wound was packed open with wet saline gauze. The patient tolerated the procedure well. Returned to recovery room in stable condition. Jesse Brink MD
[2018-01-19] MEDS: ceFAZolin 1 GM in Sodium Chloride 0.9% 100 ML IVPB SCH ×3 (01:45→17:38)
[2018-01-19] MEDS: Dextrose 5%/0.45% NS 1,000 ML IV SCH ×3 (06:00→20:52)
[2018-01-19] MEDS: metroNIDAZOLE IV 500 mg/100 ml 250 MG in Premixed IV 1 EA IVPB SCH ×3 (06:01→21:00)
[2018-01-19 08:16] LABS: BASO % 0.2 % (0.0-2.0); HEMOGLOBIN 14.3 g/dL (12.0-18.0); LYMPH # 2.2 K/uL (1.0-4.3); LYMPH % 13.4 % (20.0-40.0); MEAN CELL VOLUME 90.8 fL (80.0-94.0); MEAN CORPUSCULAR HEMOGLOBIN 31.6 pg (27.0-31.0); MEAN CORPUSCULAR HGB CONC 34.8 g/dL (33.0-37.0); MEAN PLATELET VOLUME 7.8 fL (7.2-11.7); MONO # 0.4 K/uL (0.0-0.8); MONO % 2.3 % (0.0-10.0); NEUT # 13.6 K/uL (1.8-7.0); NEUT % 84.1 % (50.0-75.0); NRBC % 0.1 % (0.0-2.0); RBC 4.53 Mil/uL (4.40-5.90); RED CELL DISTRIBUTION WIDTH 13.1 % (11.5-14.5); WHITE BLOOD COUNT 16.1 K/uL (4.8-10.8)
[2018-01-19 09:06] LABS: BLOOD UREA NITROGEN 17 mg/dL (9-20); GFR AFRICAN-AMERICAN > 60; GFR NON-AFRICAN AMERICAN > 60
[2018-01-19] MEDS ORDERED: Absorbable Gelatin Sponge Size 12-7 ONE (13:41)
[2018-01-19] MEDS ORDERED: Absorbable Gelatin Sponge Size 100 ONE (13:41)
[2018-01-19] MEDS ORDERED: Midazolam 2 MG/2 ML VIAL ONE (13:57)
[2018-01-19] MEDS ORDERED: Propofol 10 mg/ml Inj (20 ML) ONE (13:58)
[2018-01-19] MEDS: Bupivacaine HCl 0.25% PF (30 ml) Inj ONE (14:35)
[2018-01-19] MEDS ORDERED: Lactated Ringer's 1,000 ML IV ONE (14:44)
[2018-01-19] MEDS ORDERED: HYDROmorphone 0.5 mg/0.5 ml ISec IVP PRN (15:04)
--- NOTE | 2018-01-20 00:47 | OP ---
PROCEDURE DATE: 01/19/2018 PREOPERATIVE DIAGNOSIS: Rectal and pelvic abscess with fistula. POSTOPERATIVE DIAGNOSIS: Rectal and pelvic abscess with fistula. PROCEDURE PERFORMED: Re-drainage of rectal and pelvic abscess with repair of bleeding blood vessel drainage and partial adjacent tissue transfer closure. SURGEON: Jesse Brink MD ANESTHESIA: General. BLOOD LOSS: 30 mL. POSTOP CONDITION: Stable. INDICATIONS FOR SURGERY: This 42-year-old male with recurrent deep rectal and pelvic abscess, taken back to the OR for change in the packing. DESCRIPTION OF PROCEDURE: The patient was taken to the operating room and general anesthesia was administered, placed in lithotomy position. Packing was removed. There was fair amount of bleeding noted from the wound. Wound was quickly prepped and draped and a bleeding blood vessel was controlled and repaired with Prolene and silk. The wound was then pulse irrigated with saline and Kantrex solution. Remaining debridement and drainage of any remaining collection was then carried out. Partial tissue transfer closure was performed with Monocryl and the central portion of the wound was packed open with wet saline gauze. The patient tolerated the procedure well and returned to the recovery room in stable condition. Jesse Brink MD
[2018-01-20] MEDS: ceFAZolin 1 GM in Sodium Chloride 0.9% 100 ML IVPB SCH ×2 (01:20→09:02)
[2018-01-20] MEDS: metroNIDAZOLE IV 500 mg/100 ml 250 MG in Premixed IV 1 EA IVPB SCH ×2 (05:52→13:16)
[2018-01-20] MEDS: Dextrose 5%/0.45% NS 1,000 ML IV SCH ×2 (05:53→10:43)
[2018-01-20] MEDS ORDERED: Propofol 10 mg/ml Inj (20 ML) ONE (16:06)
[2018-01-20] MEDS ORDERED: Midazolam 2 MG/2 ML VIAL ONE (16:06)
[2018-01-20] MEDS ORDERED: Bacitracin Ointment 30 GM TUBE ONE (16:51)
[2018-01-20] MEDS: Bupivacaine HCl 0.25% PF (30 ml) Inj ONE (17:00)
[2018-01-20 17:02] VITALS: O2SAT 96
[2018-01-20] MEDS ORDERED: HYDROmorphone 0.5 mg/0.5 ml ISec IVP PRN (17:08)
[2018-01-20 17:41] VITALS: RESP 20
[2018-01-20 18:35] VITALS: BP 113/74; PULSE 78; TEMP 98.2
--- NOTE | 2018-01-21 02:16 | OP ---
PROCEDURE DATE: 01/20/2018 PREOPERATIVE DIAGNOSIS: Extensive rectal and pelvic abscess with anal fistula. POSTOPERATIVE DIAGNOSIS: Extensive rectal and pelvic abscess with anal fistula. PROCEDURE PERFORMED: Re-drainage of extensive rectal and pelvic abscess with anal fissure and tissue flap closure. SURGEON: Jesse Brink MD. ANESTHESIA: General. ESTIMATED BLOOD LOSS: 40 mL. POSTOP CONDITION: Stable. INDICATION: The patient was taken back to the operating room in a stage procedure for pulse irrigation, debridement and closure of his wound. DESCRIPTION OF PROCEDURE: The patient was taken back to the operating room, general anesthesia was administered, placed in lithotomy position. The packing from the wound was removed. It was prepped and draped and pulse irrigated with 2 L of saline solution. After it was completely cleansed, flaps were raised using Monocryl and advancement flap closure was performed very loosely. Any remaining collections were drained and cultured. The patient tolerated the procedure well and returned to the recovery room in stable condition. Jesse Brink MD
== END 2018-01-20 19:46 | disposition home or self-care (01) | DRG 356 ==
LOC: C.ER 09:59 → C.9E 11:01 → C.9S 12:34 → C.6T 13:52
PROVIDERS: ADMIT Surgery; ATTEND Surgery
PROC: 0HX9XZZ Transfer Perineum Skin, External Approach (ICD-10-PCS; 2018-01-18)
PROC: 06QY0ZZ Repair Lower Vein, Open Approach (ICD-10-PCS; 2018-01-18)
PROC: 0D9Q0ZX Drainage of Anus, Open Approach, Diagnostic (ICD-10-PCS; principal; 2018-01-18 15:05)
PROC: 0W9J0ZX Drainage of Pelvic Cavity, Open Approach, Diagnostic (ICD-10-PCS; 2018-01-19)
PROC: 0HX9XZZ Transfer Perineum Skin, External Approach (ICD-10-PCS; 2018-01-19)
PROC: 06QY0ZZ Repair Lower Vein, Open Approach (ICD-10-PCS; 2018-01-19)
PROC: 0D9Q0ZX Drainage of Anus, Open Approach, Diagnostic (ICD-10-PCS; 2018-01-19)
DX: K61.4 Intrasphincteric abscess (principal); K65.1 Peritoneal abscess; E78.00 Pure hypercholesterolemia, unspecified; J45.909 Unspecified asthma, uncomplicated

== ENCOUNTER 2018-02-01 10:39 | Inpatient (IN) | payer BC ==
[2018-02-01 10:49] VITALS: BMI 36.6
[2018-02-01] MEDS ORDERED: Sodium Chloride 0.9% 1,000 ML IV ONE (11:25)
[2018-02-01] MEDS ORDERED: Morphine 4 MG/ML VIAL ONE ×2 (12:03→14:04)
[2018-02-01 12:05] LABS: BASO # 0.1 K/uL (0.0-0.2); BASO % 0.4 % (0.0-2.0); EOS # 0.1 K/uL (0.0-0.7); EOS % 0.6 % (0.0-4.0); HEMOGLOBIN 16.2 g/dL (12.0-18.0); LYMPH # 0.6 K/uL (1.0-4.3); LYMPH % 4.5 % (20.0-40.0); MEAN CELL VOLUME 91.5 fL (80.0-94.0); MEAN CORPUSCULAR HEMOGLOBIN 31.7 pg (27.0-31.0); MEAN CORPUSCULAR HGB CONC 34.6 g/dL (33.0-37.0); MEAN PLATELET VOLUME 8.1 fL (7.2-11.7); MONO # 0.3 K/uL (0.0-0.8); MONO % 2.4 % (0.0-10.0); NEUT # 13.2 K/uL (1.8-7.0); NEUT % 92.1 % (50.0-75.0); RBC 5.13 Mil/uL (4.40-5.90); RED CELL DISTRIBUTION WIDTH 14.1 % (11.5-14.5); WHITE BLOOD COUNT 14.3 K/uL (4.8-10.8)
[2018-02-01 12:09] LABS: PLATELET COUNT 195 K/uL (130-400)
[2018-02-01 12:13] LABS: INR 1.1; PROTHROMBIN TIME 11.7 SECONDS (9.7-12.2)
--- NOTE | 2018-02-01 12:18 | RAD ---
PROCEDURE: Radiographs of the chest and abdomen (obstructive series) HISTORY: pain COMPARISON: Correlations made to CT scan of the abdomen and pelvis dated 11/26/2013 and chest radiograph dated 11/14/2013. TECHNIQUE: AP radiograph of the chest, with upright and supine radiographs of the abdomen. FINDINGS: CHEST: Lungs: Clear. Cardiovascular: Normal size heart. No pulmonary vascular congestion. Pleura: No pleural fluid. No pneumothorax. Other findings: None. ABDOMEN AND PELVIS: Bowel: Unremarkable bowel gas pattern. No evidence of mechanical obstruction. Free air: None. Bones: Unremarkable. Other findings: None. IMPRESSION: Unremarkable radiographs of chest and abdomen. No evidence of mechanical bowel obstruction.
[2018-02-01 12:32] LABS: BANDS 9 % (0-2); EOSINOPHIL 1 % (0-4); LYMPHOCYTE 3 % (20-40); MONOCYTE 3 % (0-10); NEUTROPHIL 84 % (50-75); PLATELET ESTIMATE NORMAL (NORMAL); TOTAL CELLS COUNTED 100
[2018-02-01 12:33] LABS: STOMATOCYTES SLIGHT
--- NOTE | 2018-02-01 12:37 | C.PDOC ---
History Of Present Illness 42-year-old male, presents to the emergency department with complaints of abdominal pain that is associated with non-bloody/non-bilious vomiting that started last night. Patient also says he has a cyst to rectal area that was I&D x [address] Brink last month. (+) chills .Patient denies fever, sob, chest pain, back pain ,headache, or neck pain. Time Seen by Provider: 02/01/18 11:07 Chief Complaint (Nursing): GI Problem History Per: Patient History/Exam Limitations: no limitations Current Symptoms Are (Timing): Still Present Severity: Moderate Past Medical History Reviewed: Historical Data, Nursing Documentation, Vital Signs Vital Signs: Last Vital Signs Temp 98.4 F 02/05/18 07:00 Pulse 76 02/05/18 07:00 Resp 20 02/05/18 07:00 BP 106/68 02/05/18 07:00 Pulse Ox 95 02/05/18 07:00 - Medical History PMH: Asthma (NEVER HOSPITALIZED), Hypercholesterolemia Surgical History: Appendectomy - [facility] Procedures DRAINAGE OF ANUS, OPEN APPROACH, DIAGNOSTIC (01/18/18) DRAINAGE OF PELVIC CAVITY, OPEN APPROACH, DIAGNOSTIC (01/18/18) DRAINAGE OF RECTUM, ENDO (01/05/18) REPAIR LOWER VEIN, OPEN APPROACH (01/18/18) REPAIR RECTUM, PERCUTANEOUS APPROACH (01/05/18) TRANSFER PERINEUM SKIN, EXTERNAL APPROACH (01/18/18) Family History: States: No Known Family Hx - Social History Hx Tobacco Use: No Hx Alcohol Use: Yes (Socially) Hx Substance Use: No - Immunization History Hx Tetanus Toxoid Vaccination: Yes Hx Influenza Vaccination: No Hx Pneumococcal Vaccination: No Review Of Systems Constitutional: Negative for: Fever Gastrointestinal: Positive for: Vomiting, Abdominal Pain Neurological: Negative for: Weakness, Numbness, Headache, Dizziness Physical Exam - Physical Exam Appears: Non-toxic, Other (uncomfortable) Skin: Warm, Dry, No Rash Head: Atraumatic, Normacephalic Eye(s): bilateral: Normal Inspection, EOMI Nose: Normal Oral Mucosa: Moist Lips: Normal Appearing Neck: Normal ROM Chest: Symmetrical Cardiovascular: Rhythm Regular Respiratory: Normal Breath Sounds, No Accessory Muscle Use Gastrointestinal/Abdominal: Soft, Tenderness (diffuse), Distention, Other ( protuberant abdomen) Rectal: Tenderness (TTP and erythema to left gluteal cleft) Back: No CVA Tenderness, No Vertebral Tenderness Extremity: Normal ROM, No Deformity, No Swelling Neurological/Psych: Oriented x3, Normal Speech ED Course And Treatment - Laboratory Results Result Diagrams: 02/01/18 12:01 02/01/18 12:01 O2 Sat by Pulse Oximetry: 100 (RA) Pulse Ox Interpretation: Normal - CT Scan/US CT ABD Other Rad Studies (CT/US): Read By Radiologist, Radiology Report Reviewed CT/US Interpretation: Accession No. : [id number]. Patient Name / ID : LILA Mendez / [id number]. Exam Date : 02/01/2018 13:36:41 ( Approved ). Study Comment : Sex / Age : M / 42Y. Creator : Lucy Pryor. Dictator : Joseph Rodriguez MD. Principal Technical Specialist : End Trimmer : Joseph Rodriguez MD. Approver2 : Report Date : 02/01/2018 13:46:38. My Comment : . PROCEDURE: CT Abdomen and Pelvis with contrast. HISTORY: pain. COMPARISON: CT scan of the pelvis dated 01/05/2018 ; CT scan of the abdomen and pelvis dated 2013. TECHNIQUE: Contrast dose: 100 mL Visipaque 320. Radiation dose: Total exam DLP = 1275.3 mGy-cm. This CT exam was performed using one or more of the following dose reduction techniques: Automated exposure control, adjustment of the mA and/or kV according to patient size, and/or use of iterative reconstruction technique. FINDINGS: LOWER THORAX: Bibasilar atelectasis. LIVER: Hepatic steatosis. No gross lesion or ductal dilatation. GALLBLADDER AND BILE DUCTS: Unremarkable. PANCREAS: Unremarkable. No gross lesion or ductal dilatation. SPLEEN: Unremarkable. ADRENALS: Unremarkable. No mass. KIDNEYS AND URETERS: Unremarkable. No hydronephrosis. No solid mass. VASCULATURE: Unremarkable. No aortic aneurysm. BOWEL: Unremarkable. No obstruction. No gross mural thickening. APPENDIX: Prior appendectomy. PERITONEUM: Fat containing right inguinal hernia. Small fat containing umbilical hernia. No free fluid. No free air. LYMPH NODES: Unremarkable. No enlarged lymph nodes. BLADDER: Unremarkable. REPRODUCTIVE: Unremarkable. BONES: No acute fracture. OTHER FINDINGS: None. IMPRESSION: No acute abdominal pelvic pathology. Progress Note: CT Abd/Pel, bloodwork and UA ordered and reviewed. On re- evaluation, pt notes abdominal pain resolved and he feels better. Tolerating PO. Case discussed with Dr Brink who notes admission to his service and Dr Santiago for ID consult. Disposition - Disposition Disposition: HOSPITALIZED Disposition Time: 16:00 Condition: STABLE - Clinical Impression Clinical Impression: Abdominal pain, Pilonidal cyst with abscess - Scribe Statement The provider has reviewed the documentation as recorded by the Scribe (Lorraine Akbar) All medical record entries made by the Scribe were at my direction and personally dictated by me. I have reviewed the chart and agree that the record accurately reflects my personal performance of the history, physical exam, medical decision making, and the department course for this patient. I have also personally directed, reviewed, and agree with the discharge instructions and disposition.
[2018-02-01 12:45] LABS: ALB/GLOB RATIO 1.1 (1.0-2.1); ALBUMIN 4.3 g/dL (3.5-5.0); ALT/SGPT 36 U/L (21-72); AST/SGOT 29 U/L (17-59); BLOOD UREA NITROGEN 13 mg/dL (9-20); CALCIUM 9.5 mg/dl (8.6-10.4); GFR AFRICAN-AMERICAN > 60; GFR NON-AFRICAN AMERICAN > 60; LIPASE 123 U/L (23-300)
[2018-02-01] MEDS ORDERED: Iohexol 350mg/ml 100 ML ONE (13:01)
[2018-02-01 13:06] LABS: SQUAMOUS EPITHIAL 1 /hpf (0-5); URINE BILIRUBIN NEGATIVE (NEGATIVE); URINE BLOOD 1+ (NEGATIVE); URINE CLARITY Clear (Clear); URINE COLOR Yellow (YELLOW); URINE GLUCOSE (UA) NORMAL (Normal); URINE LEUKOCYTE ESTERASE NEG Leu/uL (Negative); URINE PROTEIN 1+ mg/dL (NEGATIVE); URINE UROBILINOGEN NORMAL mg/dL (0.2-1.0)
--- NOTE | 2018-02-01 14:02 | CT ---
PROCEDURE: CT Abdomen and Pelvis with contrast HISTORY: pain COMPARISON: CT scan of the pelvis dated 01/05/2018 ; CT scan of the abdomen and pelvis dated 11/26/2013. TECHNIQUE: Contrast dose: 100 mL Visipaque 320 Radiation dose: Total exam DLP = 1275.3 mGy-cm. This CT exam was performed using one or more of the following dose reduction techniques: Automated exposure control, adjustment of the mA and/or kV according to patient size, and/or use of iterative reconstruction technique. FINDINGS: LOWER THORAX: Bibasilar atelectasis. LIVER: Hepatic steatosis. No gross lesion or ductal dilatation. GALLBLADDER AND BILE DUCTS: Unremarkable. PANCREAS: Unremarkable. No gross lesion or ductal dilatation. SPLEEN: Unremarkable. ADRENALS: Unremarkable. No mass. KIDNEYS AND URETERS: Unremarkable. No hydronephrosis. No solid mass. VASCULATURE: Unremarkable. No aortic aneurysm. BOWEL: Unremarkable. No obstruction. No gross mural thickening. APPENDIX: Prior appendectomy. PERITONEUM: Fat containing right inguinal hernia. Small fat containing umbilical hernia. No free fluid. No free air. LYMPH NODES: Unremarkable. No enlarged lymph nodes. BLADDER: Unremarkable. REPRODUCTIVE: Unremarkable. BONES: No acute fracture. OTHER FINDINGS: None. IMPRESSION: No acute abdominal pelvic pathology.
[2018-02-01] MEDS ORDERED: Piperacillin/Tazobact 3.375 gm 100 ML IV STA (14:28)
[2018-02-01] MEDS ORDERED: Piperacillin/Tazobact 3.375 gm 100 ML IVPB ONE (14:44)
[2018-02-01] MEDS: Sodium Chloride 0.9% 1,000 ML IV SCH (19:34)
[2018-02-01] MEDS: Piperacill/Tazo 3.375gm in Dex 3.375 GM/50 ML BAG IVPB SCH (22:47)
[2018-02-02] MEDS: Piperacill/Tazo 3.375gm in Dex 3.375 GM/50 ML BAG IVPB SCH ×4 (04:10→22:26)
[2018-02-02] MEDS: Sodium Chloride 0.9% 1,000 ML IV SCH ×2 (05:54→15:15)
--- NOTE | 2018-02-02 08:56 | RAD ---
HISTORY: FEVER COMPARISON: 11/14/2013 TECHNIQUE: Chest PA and lateral FINDINGS: LUNGS: No active pulmonary disease. PLEURA: No significant pleural effusion identified. No pneumothorax apparent. CARDIOVASCULAR: Normal. OSSEOUS STRUCTURES: No significant abnormalities. VISUALIZED UPPER ABDOMEN: Normal. OTHER FINDINGS: None. IMPRESSION: No active disease.
--- NOTE | 2018-02-02 12:23 | CP.PCM.CON ---
History of Present Illness - History of Present Illness History of Present Illness: 42-year-old male, presents to the emergency department with complaints of abdominal pain that is associated with non-bloody/non-bilious vomiting that started last night. Patient also says he has a cyst to rectal area that was I&D x [address] Brink last month. (+) chills .Patient denies fever, sob, chest pain, back pain ,headache, or neck pain. c/o fever and chills also has left leg pain and tenderness - no palpable cord or edema will send for stat venous doppler - Medical History PMH: Asthma (NEVER HOSPITALIZED), Hypercholesterolemia Surgical History: Appendectomy - [facility] Procedures DRAINAGE OF ANUS, OPEN APPROACH, DIAGNOSTIC (01/18/18) DRAINAGE OF PELVIC CAVITY, OPEN APPROACH, DIAGNOSTIC (01/18/18) DRAINAGE OF RECTUM, ENDO (01/05/18) REPAIR LOWER VEIN, OPEN APPROACH (01/18/18) REPAIR RECTUM, PERCUTANEOUS APPROACH (01/05/18) TRANSFER PERINEUM SKIN, EXTERNAL APPROACH (01/18/18) Review of Systems - Review of Systems All systems: reviewed and no additional remarkable complaints except - Constitutional Constitutional: As Per HPI - EENT Eyes: absent: As Per HPI, Blind Spots, Blurred Vision, Change in Vision, Decreased Night Vision, Diplopia, Discharge, Dry Eye, Exophthalmos, Floaters, Irritation, Itchy Eyes, Loss of Peripheral Vision, Pain, Photophobia, Requires Corrective Lenses, Sees Flashes, Spots in Vision, Tunnel Vision, Other Visual Disturbances, Loss of Vision, Other Ears: absent: As Per HPI, Decreased Hearing, Ear Discharge, Ear Pain, Tinnitus, Abnormal Hearing, Disequilibrium, Dizziness, Other Nose/Mouth/Throat: absent: As Per HPI, Epistaxis, Nasal Congestion, Nasal Discharge, Nasal Obstruction, Nasal Trauma, Nose Pain, Post Nasal Drip, Sinus Pain, Sinus Pressure, Bleeding Gums, Change in Voice, Dental Pain, Dry Mouth, Dysphagia, Halitosis, Hoarsness, Lip Swelling, Mouth Lesions, Mouth Pain, Odynophagia, Sore Throat, Throat Swelling, Tongue Swelling, Facial Pain, Neck Pain, Neck Mass, Other - Cardiovascular Cardiovascular: absent: As Per HPI, Acrocyanosis, Chest Pain, Chest Pain at Rest , Chest Pain with Activity, Claudication, Diaphoresis, Dyspnea, Dyspnea on Exertion, Edema, Irregular Heart Rhythm, Pain Radiating to Arm/Neck/Jaw, Leg Edema, Leg Ulcers, Lightheadedness, Orthopnea, Palpitations, Paroxysmal Nocturnal Dyspnea, Pedal Edema, Radiating Pain, Rapid Heart Rate, Slow Heart Rate, Syncope, Other - Respiratory Respiratory: absent: As Per HPI, Cough, Dyspnea, Hemoptysis, Dyspnea on Exertion , Wheezing, Snoring, Stridor, Pain on Inspiration, Chest Congestion, Excessive Mucous Production, Change in Mucous Color, Pain with Coughing, Other - Gastrointestinal Gastrointestinal: absent: As Per HPI, Abdominal Pain, Belching, Bloating, Change in Bowel Habits, Change in Stool Character, Coffee Ground Emesis, Constipation, Cramping, Diarrhea, Dyspepsia, Dysphagia, Early Satiety, Excessive Flatus, Fecal Incontinence, Heartburn, Hematemesis, Hematochezia, Loose Stools, Melena, Nausea, Odynophagia, Temesmus, Vomiting, Other - Genitourinary Genitourinary: absent: As Per HPI, Change in Urinary Stream, Difficulty Urinating, Dysuria, Flank Pain, Hematuria, Pyuria, Nocturia, Urinary Incontinence, Urinary Frequency, Urinary Hesitance, Urinary Urgency, Voiding Freq/Small Amts, Freq UTI, Hx Renal/Bladder Calculi, Hx /Renal Surgery, Bladder Distension, Other - Musculoskeletal Musculoskeletal: As Per HPI - Integumentary Integumentary: As Per HPI - Neurological Neurological: absent: As Per HPI, Abnormal Gait, Abnormal Hearing, Abnormal Movements, Abnormal Speech, Behavioral Changes, Burning Sensations, Confusion, Convulsions, Disequilibrium, Dizziness, Numbness, Focal Weakness, Frequent Falls , Headaches, Lack of Coordination, Loss of Vision, Memory Loss, Paresthesias, Radicular Pain, Restless Legs, Sensory Deficit, Syncope, Tingling, Tremor, Vertigo, Weakness, Other Visual Disturbances, Other - Psychiatric Psychiatric: absent: As Per HPI, Abnormal Sleep Pattern, Anhedonia, Anxiety, Auditory Hallucinations, Behavioral Changes, Change in Appetite, Change in Libido, Confusion, Depression, Difficulty Concentrating, Hallucinations, Homicidal Ideation, Hopelessness, Irritability, Memory Loss, Mood Swings, Panic Attacks, Paranoia, Suicidal Ideation, Visual Hallucinations, Tactile Hallucinations, Other Past Patient History - Past Social History Smoking Status: Light Smoker < 10 Cigarettes Daily - CARDIAC Hx Hypercholesterolemia: Yes - PULMONARY Hx Asthma: Yes (NEVER HOSPITALIZED) - NEUROLOGICAL Hx Neurological Disorder: No - HEENT Hx HEENT Problems: No - RENAL Hx Chronic Kidney Disease: No - ENDOCRINE/METABOLIC Hx Endocrine Disorders: No - HEMATOLOGICAL/ONCOLOGICAL Hx Blood Disorders: No - INTEGUMENTARY Hx Dermatological Problems: Yes - MUSCULOSKELETAL/RHEUMATOLOGICAL Hx Musculoskeletal Disorders: No Hx Falls: No - GASTROINTESTINAL Hx Gastrointestinal Disorders: No - GENITOURINARY/GYNECOLOGICAL Hx Genitourinary Disorders: No - PSYCHIATRIC Hx Substance Use: No - SURGICAL HISTORY Hx Appendectomy: Yes - ANESTHESIA Hx Anesthesia: Yes Hx Anesthesia Reactions: No Hx Malignant Hyperthermia: No Meds Allergies/Adverse Reactions: Allergies Allergy/AdvReac Type Severity Reaction Status Date / Time No Known Allergies Allergy Verified 02/01/18 10:48 - Medications Medications: Current Medications Sodium Chloride (Sodium Chloride 0.9%) 1,000 mls @ 100 mls/hr IV .[facility]H [facility] Last Admin: 02/02/18 05:54 Dose: 100 mls/hr Piperacillin Sod/Tazobactam Sod (Zosyn 3.375 Gm Iv Premix) 3.375 gm in 50 mls @ 100 mls/hr IVPB Q6H [facility] PRN Reason: Protocol Last Admin: 02/02/18 11:00 Dose: 100 mls/hr Ketorolac Tromethamine (Toradol) 30 mg IVP Q6 PRN PRN Reason: Pain, moderate (4-7) Last Admin: 02/02/18 05:58 Dose: 30 mg Physical Exam - Constitutional Appears: Non-toxic, Chronically Ill - Head Exam Head Exam: NORMOCEPHALIC - Eye Exam Eye Exam: PERRL - ENT Exam ENT Exam: Mucous Membranes Dry - Neck Exam Neck exam: Negative for: Lymphadenopathy - Respiratory Exam Respiratory Exam: Decreased Breath Sounds - Cardiovascular Exam Cardiovascular Exam: REGULAR RHYTHM - GI/Abdominal Exam GI & Abdominal Exam: Diminished Bowel Sounds, Soft - Rectal Exam Rectal Exam: Deferred - Exam Exam: NORMAL INSPECTION - Extremities Exam Extremities exam: Negative for: pedal edema - Back Exam Back exam: absent: CVA tenderness (L), CVA tenderness (R) - Neurological Exam Neurological exam: Alert, CN II-XII Intact, Oriented x3, Reflexes Normal - Psychiatric Exam Psychiatric exam: Depressed Results - Vital Signs Recent Vital Signs: Last Vital Signs Temp 97.7 F 02/02/18 07:42 Pulse 78 02/02/18 07:42 Resp 20 02/02/18 07:42 BP 96/68 L 02/02/18 07:42 Pulse Ox 96 02/02/18 07:42 - Labs Result Diagrams: 02/01/18 12:01 02/01/18 12:01 Labs: Laboratory Results - last 24 hr 02/01/18 02/01/18 02/01/18 12:01 12:01 12:53 Neutrophils % (Manual) 84 H Band Neutrophils % 9 H Lymphocytes % (Manual) 3 L Monocytes % (Manual) 3 Eosinophils % (Manual) 1 Platelet Estimate Normal Stomatocytes Slight Sodium 147 Potassium 4.9 Chloride 105 Carbon Dioxide 24 Anion Gap 22 H BUN 13 Creatinine 1.0 Est GFR ( Amer) > 60 Est GFR (Non-Af Amer) > 60 POC Glucose (mg/dL) Random Glucose 147 H Calcium 9.5 Total Bilirubin 1.1 AST 29 ALT 36 Alkaline Phosphatase 67 Total Protein 8.2 Albumin 4.3 Globulin 3.9 Albumin/Globulin Ratio 1.1 Lipase 123 Urine Color Yellow Urine Clarity Clear Urine pH 5.0 Ur Specific [place] 1.025 Urine Protein 1+ H Urine Glucose (UA) Normal Urine Ketones Negative Urine Blood 1+ H Urine Nitrate Negative Urine Bilirubin Negative Urine Urobilinogen Normal Ur Leukocyte Esterase Neg Urine WBC (Auto) 1 Urine RBC (Auto) 8 H Ur Squamous Epith Cells 1 02/01/18 22:49 Neutrophils % (Manual) Band Neutrophils % Lymphocytes % (Manual) Monocytes % (Manual) Eosinophils % (Manual) Platelet Estimate Stomatocytes Sodium Potassium Chloride Carbon Dioxide Anion Gap BUN Creatinine Est GFR ( Amer) Est GFR (Non-Af Amer) POC Glucose (mg/dL) 101 Random Glucose Calcium Total Bilirubin AST ALT Alkaline Phosphatase Total Protein Albumin Globulin Albumin/Globulin Ratio Lipase Urine Color Urine Clarity Urine pH Ur Specific [place] Urine Protein Urine Glucose (UA) Urine Ketones Urine Blood Urine Nitrate Urine Bilirubin Urine Urobilinogen Ur Leukocyte Esterase Urine WBC (Auto) Urine RBC (Auto) Ur Squamous Epith Cells Assessment & Plan (1) DVT (deep venous thrombosis) Status: Acute (2) DVT (deep venous thrombosis) Status: Acute (3) Ayah-rectal abscess Status: Acute (4) Perianal abscess Status: Acute - Assessment and Plan (Free Text) Assessment: iv rx ordered cultures pending
[2018-02-02] MEDS ORDERED: Lidocaine Hydrochloride 10 ML INJ ONE (13:11)
[2018-02-02] MEDS ORDERED: Bupivacaine HCl 0.25% PF (30 ml) Inj ONE (13:11)
[2018-02-02] MEDS: HYDROmorphone 0.5 mg/0.5 ml ISec IVP PRN ×2 (14:13→14:43)
[2018-02-03] MEDS: Sodium Chloride 0.9% 1,000 ML IV SCH ×3 (00:59→21:46)
--- NOTE | 2018-02-03 08:52 | OP ---
PROCEDURE DATE: 02/02/2018 PREOPERATIVE DIAGNOSIS: Infected sacral mass. POSTOPERATIVE DIAGNOSIS: Infected sacral mass. PROCEDURE PERFORMED: Wide deep excision, infected sacral mass. SURGEON: Jesse Brink MD ANESTHESIA: General. BLOOD LOSS: 30 mL. POSTOPERATIVE CONDITION: Stable. INDICATIONS FOR SURGERY: This is a 42-year-old male who presented with an infected mass of the sacral area, now undergo wide deep excision. DESCRIPTION OF PROCEDURE: The patient was taken to the operating room, placed in a prone position, IV sedation was administered. A generous elliptical incision measuring 6 x 9 cm was made surrounding the mass. The mass was complete dissected free to the presacral fascia and removed. Bleeding was controlled using the Bovie. Parasacral blood vessel was repaired. Wound was irrigated with copious amounts of saline solution and a partial advancement flap closure was performed at the periphery. Central portion of the wound was packed with wet saline gauze. The patient tolerated the procedure well. Returned to recovery room in stable condition. Jesse Brink MD
[2018-02-03] MEDS ORDERED: Pneumococcal 23-Valent Vaccine IM ONE (10:00)
--- NOTE | 2018-02-03 11:24 | VASCLAB ---
PROCEDURE: Lower Extremity Venous Duplex Exam. HISTORY: Pain in limb, Tenderness PRIORS: None. TECHNIQUE: Bilateral common femoral, femoral, popliteal and posterior tibial, peroneal and great saphenous veins were evaluated. Flow was assessed with color Doppler, compressibility, assessment of phasic flow and augmentation response. Report prepared by COLETTE Whittington FINDINGS: RIGHT: 1. Common Femoral Vein: 1.1. Compressibility - Fully compressible: Thrombus - None : Flow - Phasic: Augmentation -Normal: Reflux - None. 2. Femoral Vein: 2.1. Compressibility - Fully compressible: Thrombus - None : Flow - Phasic: Augmentation -Normal: Reflux - None. 3. Popliteal Vein: 3.1. Compressibility - Fully compressible: Thrombus - None : Flow - Phasic: Augmentation -Normal: Reflux - None. 4. Posterior Tibial Vein: 4.1. Compressibility - Fully compressible: Thrombus - None: Flow - Phasic: Augmentation -Normal: Reflux - None. 5. Peroneal Vein: 5.1. Compressibility - Fully compressible: Thrombus - None: Flow - Phasic: Augmentation -Normal: Reflux - None. 6. Great Saphenous Vein: 6.1. Compressibility - Fully compressible: Thrombus - None: Flow - Phasic: Augmentation - Normal: Reflux - None. LEFT: 1. Common Femoral Vein: 1.1. Compressibility - Fully compressible: Thrombus - None: Flow - Phasic: Augmentation -Normal: Reflux - None. 2. Femoral Vein: 2.1. Compressibility - Fully compressible: Thrombus - None: Flow - Phasic: Augmentation -Normal: Reflux - None. 3. Popliteal Vein: 3.1. Compressibility - Fully compressible: Thrombus - None : Flow - Phasic: Augmentation -Normal: Reflux - None. 4. Posterior Tibial Vein: 4.1. Compressibility - Fully compressible: Thrombus - None: Flow - Phasic: Augmentation -Normal: Reflux - None. 5. Peroneal Vein: 5.1. Compressibility - Partial: Thrombus - Acute: Flow - Reduced : Augmentation -Normal: Reflux - None. 6. Great Saphenous Vein: 6.1. Compressibility - Fully compressible: Thrombus - None: Flow - Phasic: Augmentation - Normal: Reflux - Mild. 2.06s OTHER FINDINGS: IMPRESSION: Right: No evidence of deep or superficial vein thrombosis of the right lower extremity. Normal valve function noted of the right side. Left: Partial acute deep vein thrombosis of the left peroneal veins, with mild reduction of the venous return. Mild valvular incompetence noted of the left great saphenous vein. Findings were reported by the radiologic technologist, to Kendra Orellana at 8:51 a.m.
[2018-02-03] MEDS ORDERED: ceFAZolin 1 gm in NS 2 GM/200 ML BAG IVPB ONE (13:06)
[2018-02-03] MEDS ORDERED: Midazolam 2 MG/2 ML VIAL ONE (13:22)
[2018-02-03] MEDS ORDERED: Propofol 10 mg/ml Inj (20 ML) ONE (13:22)
[2018-02-03] MEDS ORDERED: Lactated Ringer's 1,000 ML IV ONE (13:53)
[2018-02-03] MEDS ORDERED: Oxycodone/Acetaminophen 5/325 mg Tab PO PRN (13:56)
[2018-02-03] MEDS: HYDROmorphone 0.5 mg/0.5 ml ISec IVP PRN ×2 (14:11→15:00)
[2018-02-03] MEDS ORDERED: HYDROmorphone 0.5 mg/0.5 ml ISec ONE (14:13)
[2018-02-03] MEDS ORDERED: Lactated Ringer's 1,000 ML IV SCH (14:15)
[2018-02-03] MEDS: ceFAZolin IV 1 gm in Dextrose 1 GM/50 ML BAG IVPB SCH (18:40)
--- NOTE | 2018-02-03 19:03 | CP.PCM.PN ---
Subjective - Date & Time of Evaluation Date of Evaluation: 02/03/18 Time of Evaluation: 07:00 - Subjective Subjective: + acute dvt left leg Dr farr notified orders written s/p I and D c/o pain wound packing in place denies sob / cough started on eliquis cultures pending Objective - Vital Signs/Intake and Output Vital Signs (last 24 hours): Temp Pulse Resp BP Pulse Ox 97.7 F 82 20 125/76 97 02/03/18 16:47 02/03/18 16:47 02/03/18 16:47 02/03/18 16:47 02/03/18 16:47 Intake and Output: 02/03/18 02/04/18 18:59 06:59 Intake Total 1000 Balance 1000 - Medications Medications: Current Medications Apixaban (Eliquis) 5 mg PO BID [facility] Last Admin: 02/03/18 17:06 Dose: 5 mg Sodium Chloride (Sodium Chloride 0.9%) 1,000 mls @ 100 mls/hr IV .Q10H [facility] Last Admin: 02/03/18 11:20 Dose: Not Given Lactated Ringer's (Lactated Ringer's) 1,000 mls @ 150 mls/hr IV .Q6H40M [facility] Cefazolin Sodium/Dextrose (Ancef Iv 1 Gm Duplex) 1 gm in 50 mls @ 100 mls/hr IVPB Q8H [facility] PRN Reason: Protocol Last Admin: 02/03/18 18:40 Dose: 100 mls/hr Tramadol HCl (Ultram) 100 mg PO Q8H PRN PRN Reason: Pain, moderate (4-7) Last Admin: 02/03/18 18:40 Dose: 100 mg - Labs Labs: 02/01/18 12:01 02/01/18 12:01 PT 11.7 SECONDS (9.7-12.2) 02/01/18 12:01 INR 1.1 02/01/18 12:01 APTT 30 SECONDS (21-34) 02/01/18 12:01 - Constitutional Appears: Non-toxic, Chronically Ill - Head Exam Head Exam: NORMOCEPHALIC - Eye Exam Eye Exam: PERRL - ENT Exam ENT Exam: Mucous Membranes Dry - Neck Exam Neck Exam: absent: Lymphadenopathy - Respiratory Exam Respiratory Exam: Decreased Breath Sounds - Cardiovascular Exam Cardiovascular Exam: REGULAR RHYTHM - GI/Abdominal Exam GI & Abdominal Exam: Distended - Rectal Exam Rectal Exam: Deferred - Exam Exam: NORMAL INSPECTION - Extremities Exam Extremities Exam: absent: Pedal Edema - Back Exam Back Exam: absent: CVA tenderness (L), CVA tenderness (R) - Neurological Exam Neurological Exam: Alert, Awake, Oriented x3 - Psychiatric Exam Psychiatric exam: Normal Mood Assessment and Plan - Assessment and Plan (Free Text) Plan: cont iv rx
[2018-02-03] MEDS: Morphine 4 MG/ML VIAL IV PRN (22:20)
--- NOTE | 2018-02-04 02:09 | OP ---
PROCEDURE DATE: 02/03/2018 PREOPERATIVE DIAGNOSIS Infected sacral mass with sacral abscess. POSTOPERATIVE DIAGNOSIS: Infected sacral mass with sacral abscess, sacral polyp. PROCEDURE PERFORMED: A wide and deep excision of a sacral polyp with debridement of open sacral wound and partial tissue transfer closure and repair of parasacral blood vessel. SURGEON: Jesse Brink MD. ANESTHESIA: General endotracheal. ESTIMATED BLOOD LOSS: 30 mL. POSTOPERATIVE CONDITION: Stable. INDICATIONS FOR SURGERY: This is a 42-year-old male who presented with a sacral abscess and had underwent a wide deep excision of a sacral mass, the patient was taken back to the operating room for change of packing vigorous irrigation and cleansing of the wound and possible closure. PROCEDURE: The patient was taken to the operating room and placed in the prone position, IV sedation was administered. The wound was anesthetized with local anesthesia 0.25 Marcaine 1% lidocaine. The wound was now aggressively debrided and any remaining collections were drained and cultured. Bleeding was controlled using a Bovie. Parasacral blood vessel was repaired and there was noted a sacral polyp in the midportion of sacrum which was excised. Bleeding was again controlled using the Bovie. Partial advancement flap closure was performed at the periphery by raising full-thickness flaps, central portion was packed open with saline gauze. The patient tolerated the procedure well, returned to recovery room in stable condition. Jesse Brink MD
[2018-02-04] MEDS: ceFAZolin IV 1 gm in Dextrose 1 GM/50 ML BAG IVPB SCH ×3 (02:23→17:15)
[2018-02-04] MEDS: Morphine 4 MG/ML VIAL IV PRN ×5 (02:50→23:49)
[2018-02-04] MEDS: Sodium Chloride 0.9% 1,000 ML IV SCH ×2 (06:14→17:18)
[2018-02-04] MEDS ORDERED: Lidocaine Hydrochloride 15 ML INJ ONE (10:29)
[2018-02-04] MEDS ORDERED: Bupivacaine HCl 0.25% PF (30 ml) Inj ONE (10:29)
[2018-02-04] MEDS ORDERED: ceFAZolin 1 gm in NS 1 GM/100 ML BAG IVPB ONE (10:44)
[2018-02-04] MEDS ORDERED: Bacitracin Ointment 30 GM TUBE ONE (11:14)
[2018-02-04] MEDS: HYDROmorphone 0.5 mg/0.5 ml ISec IVP PRN ×2 (11:22→11:51)
[2018-02-04 16:13] VITALS: RESP 20
--- NOTE | 2018-02-04 19:17 | CP.PCM.PN ---
Subjective - Date & Time of Evaluation Date of Evaluation: 02/04/18 Time of Evaluation: 10:00 - Subjective Subjective: improving iv rx in progress all cultures neg d/c on PO and blood thinner may need heme eval as out pt Objective - Vital Signs/Intake and Output Vital Signs (last 24 hours): Temp Pulse Resp BP Pulse Ox 98.6 F 89 20 114/70 95 02/04/18 16:09 02/04/18 16:09 02/04/18 16:09 02/04/18 16:09 02/04/18 16:09 Intake and Output: 02/04/18 02/05/18 18:59 06:59 Intake Total 1315 Output Total 300 Balance 1015 - Medications Medications: Current Medications Apixaban (Eliquis) 5 mg PO BID [facility] Last Admin: 02/04/18 17:13 Dose: 5 mg Sodium Chloride (Sodium Chloride 0.9%) 1,000 mls @ 100 mls/hr IV .Q10H [facility] Last Admin: 02/04/18 17:18 Dose: Not Given Cefazolin Sodium/Dextrose (Ancef Iv 1 Gm Duplex) 1 gm in 50 mls @ 100 mls/hr IVPB Q8H [facility] PRN Reason: Protocol Last Admin: 02/04/18 17:15 Dose: 100 mls/hr Morphine Sulfate (Morphine) 4 mg IV Q4 PRN PRN Reason: Pain, severe (8-10) Last Admin: 02/04/18 18:42 Dose: 4 mg Tramadol HCl (Ultram) 100 mg PO Q8H PRN PRN Reason: Pain, moderate (4-7) Last Admin: 02/04/18 09:11 Dose: 100 mg - Labs Labs: 02/01/18 12:01 02/01/18 12:01 PT 11.7 SECONDS (9.7-12.2) 02/01/18 12:01 INR 1.1 02/01/18 12:01 APTT 30 SECONDS (21-34) 02/01/18 12:01 Assessment and Plan (1) DVT (deep venous thrombosis) Status: Acute (2) DVT (deep venous thrombosis) Status: Acute (3) Ayah-rectal abscess Status: Acute (4) Perianal abscess Status: Acute
--- NOTE | 2018-02-04 19:58 | OP ---
PROCEDURE DATE: 02/04/2018 PREOPERATIVE DIAGNOSIS: Sacral abscess with a large open wound. POSTOPERATIVE DIAGNOSIS: Sacral abscess with a large open wound. PROCEDURE PERFORMED: Redrainage of sacral abscess with debridement and advancement flap closure, large open wound to the sacrum. SURGEON: Jesse Brink MD. ANESTHESIA General. ESTIMATED BLOOD LOSS: 40 mL. POSTOPERATIVE CONDITION: Stable. INDICATIONS FOR SURGERY: This is a 42-year-old male with a abscess of the sacral area, status post multiple debridements taken back to the OR in a stage procedure for debridement and closure of the wound and now that is granulated. PROCEDURE The patient was taken to the operating room, placed in the prone position, IV sedation was administered and the area was anesthetized with local anesthesia. The wound was then pulse irrigated and again aggressively debrided and any remaining collections were drained. Generous full-thickness flaps were raised both laterally and a presacral blood vessel was repaired. The wound was irrigated, again irrigated and closed with multiple layers of Monocryl and subcuticular Monocryl. Bacitracin was placed on the wound and it was dressed sterilely. The patient tolerated the procedure well and returned to recovery room in stable condition. Jesse Brink MD
[2018-02-05] MEDS: ceFAZolin IV 1 gm in Dextrose 1 GM/50 ML BAG IVPB SCH ×2 (01:25→09:05)
[2018-02-05] MEDS: Morphine 4 MG/ML VIAL IV PRN (05:55)
[2018-02-05 07:35] VITALS: BP 106/68; PULSE 76; TEMP 98.4
[2018-02-05 20:33] VITALS: O2SAT 100
== END 2018-02-05 10:47 | disposition home or self-care (01) | DRG 577 ==
LOC: C.ER 10:39 → C.9E 14:23 → C.3T 16:29 → OBSVTOIN 02-03 18:41
PROVIDERS: ADMIT Surgery; ATTEND Surgery
PROC: 0JB70ZZ Excision of Back Subcutaneous Tissue and Fascia, Open Approach (ICD-10-PCS; principal; 2018-02-02 13:30)
PROC: 0JB70ZZ Excision of Back Subcutaneous Tissue and Fascia, Open Approach (ICD-10-PCS; 2018-02-03)
PROC: 0J970ZZ Drainage of Back Subcutaneous Tissue and Fascia, Open Approach (ICD-10-PCS; 2018-02-03)
PROC: 0HX6XZZ Transfer Back Skin, External Approach (ICD-10-PCS; 2018-02-04)
PROC: 0JB70ZZ Excision of Back Subcutaneous Tissue and Fascia, Open Approach (ICD-10-PCS; 2018-02-04)
PROC: 0J970ZZ Drainage of Back Subcutaneous Tissue and Fascia, Open Approach (ICD-10-PCS; 2018-02-04)
DX: L05.01 Pilonidal cyst with abscess (principal); L02.212 Cutaneous abscess of back [any part, except buttock and flank]; I82.4Z2 Acute embolism and thrombosis of unspecified deep veins of left distal lower extremity; J45.909 Unspecified asthma, uncomplicated; K21.9 Gastro-esophageal reflux disease without esophagitis; E78.00 Pure hypercholesterolemia, unspecified; F17.210 Nicotine dependence, cigarettes, uncomplicated; Z90.49 Acquired absence of other specified parts of digestive tract

== ENCOUNTER 2018-09-27 09:45 | Emergency (ER) | payer BC ==
[2018-09-27 09:52] VITALS: BMI 39.4
[2018-09-27 09:57] VITALS: RESP 18
--- NOTE | 2018-09-27 10:47 | C.PDOC ---
History Of Present Illness 42 year old male with a history of diabetes and high cholesterol presents to the emergency department with complaints of abdominal pain associated with vomiting for the last week. Pain is dull and radiates through to back. As per patient, he is not compliant with his Metformin because it upsets his stomach. Patient states that on Trini, he ate "some spread on bread" after which he began vomiting. Patient states that he has been vomiting 1-2 times per day, but denies hematemesis, diarrhea. Patient denies sick contact, and states that he has not received a flu vaccination this season. He denies taking medications for his symptoms. Denies fevers, chills, diarrhea, constipation, urinary symptoms, testicular pain/swelling, CP, palpitations, SOB, or any other associated complaints. Time Seen by Provider: 09/27/18 10:00 Chief Complaint (Nursing): Abdominal Pain History Per: Patient History/Exam Limitations: no limitations Onset/Duration Of Symptoms: Days (7) Current Symptoms Are (Timing): Still Present Context: Food Location Of Pain/Discomfort: Other (abdominen) Quality Of Discomfort: "Pain" Associated Symptoms: Chills, Vomiting, Back Pain. denies: Fever, Nausea, Diarrhea Past Medical History Reviewed: Historical Data, Nursing Documentation, Vital Signs Vital Signs: Last Vital Signs Temp 98.2 F 09/27/18 09:52 Pulse 86 09/27/18 09:52 Resp 18 09/27/18 09:52 BP 129/83 09/27/18 09:52 Pulse Ox 98 09/27/18 09:52 - Medical History PMH: Asthma, Diabetes, Hypercholesterolemia Denies: Chronic Kidney Disease Surgical History: Appendectomy, Back Surgery - [facility] Procedures DRAINAGE OF ANUS, OPEN APPROACH, DIAGNOSTIC (01/18/18) DRAINAGE OF BACK SUBCU/FASCIA, OPEN APPROACH (02/03/18) DRAINAGE OF PELVIC CAVITY, OPEN APPROACH, DIAGNOSTIC (01/18/18) DRAINAGE OF RECTUM, ENDO (01/05/18) EXCISION OF BACK SUBCU/FASCIA, OPEN APPROACH (02/03/18) REPAIR LOWER VEIN, OPEN APPROACH (01/18/18) REPAIR RECTUM, PERCUTANEOUS APPROACH (01/05/18) TRANSFER BACK SKIN, EXTERNAL APPROACH (02/03/18) TRANSFER PERINEUM SKIN, EXTERNAL APPROACH (01/18/18) Family History: States: No Known Family Hx - Social History Hx Tobacco Use: No Hx Alcohol Use: Yes (Socially) Hx Substance Use: No - Immunization History Hx Tetanus Toxoid Vaccination: No Hx Influenza Vaccination: No Hx Pneumococcal Vaccination: No Review Of Systems Except As Marked, All Systems Reviewed And Found Negative. Constitutional: Negative for: Fever, Chills Eyes: Negative for: Vision Change ENT: Negative for: Nose Congestion Cardiovascular: Negative for: Chest Pain, Palpitations, Light Headedness Respiratory: Negative for: Cough, Shortness of Breath Gastrointestinal: Positive for: Vomiting, Abdominal Pain. Negative for: Nausea, Diarrhea, Hematemesis Genitourinary: Negative for: Dysuria, Frequency, Penile Discharge, Scrotal Pain, Rash, Penile Pain Musculoskeletal: Positive for: Back Pain Neurological: Negative for: Weakness, Numbness, Headache, Dizziness Physical Exam - Physical Exam Appears: Non-toxic, No Acute Distress Skin: Normal Color, Warm, Dry Head: Atraumatic, Normacephalic Eye(s): bilateral: Normal Inspection, PERRL, EOMI Nose: Normal Oral Mucosa: Moist Throat: Normal Neck: Normal, Normal ROM, Supple Chest: Symmetrical, No Tenderness Cardiovascular: Rhythm Regular, No Murmur Respiratory: Normal Breath Sounds, No Rales, No Rhonchi, No Wheezing Gastrointestinal/Abdominal: No Bowel Sounds (hypoactive bowel sounds), Soft, Tenderness (periumbilical tenderness), Distention (mild), No Guarding, No Rebound Back: Normal Inspection, No CVA Tenderness, No Vertebral Tenderness, No Paraspinal Tenderness Extremity: Normal ROM, Capillary Refill (<2s) Extremity: Bilateral: Atraumatic, No Pedal Edema, Normal Color And Temperature, Normal ROM Pulses: Left Radial: Normal, Right Radial: Normal Neurological/Psych: Oriented x3, Normal Speech, Normal Cognition, Normal Motor, Normal Sensation Gait: Steady ED Course And Treatment - Laboratory Results Result Diagrams: 09/27/18 11:00 09/27/18 11:00 O2 Sat by Pulse Oximetry: 98 (RA) Pulse Ox Interpretation: Normal - Other Rad CXR X-Ray: Viewed By Me, Read By Radiologist Interpretation: IMPRESSION: No focal consolidation. Medical Decision Making Medical Decision Making: Initial Plan: * CBC, CMP * Lipase * Coags * UA * CXR * CT Abd/Pelvis * IVF * Toradol * Zofran 1300 Patient continues to c/o nausea after Zofran Bloodwork unremarkable other than elevated lipase at 788 [id number] Patient eating full meal in ED stretcher brought to him by family. Advised to stop until CT results are back. CXR no active disease 1630 CT negative for acute pathology, shows underdistended gallbladder and hepatomegaly. 1700 Patient was recommended to be admitted for elevated lipase, as well as persistent abdominal pain, nausea, and vomiting. Patient is choosing to leave AMA. On interview pt with capacity. Discussed with patient the risks, benefits and alternatives of leaving without completing the evaluation in the emergency department, including and permanent neurologic dysfunction. Patient understands the decision being made, alternative options, the risks and benefits of those options. Pt demonstrated understanding of this information, the ability to apply it to themself and ability to communicate the decision and its consequences. Pt still wishes to leave AMA. Discussed at length with pt the reasons would like for pt to stay for further tx and concerns; however, pt refuses to stay for further tx. Pt understands risk of and/or disability by leaving and still wishes to sign out against medical advice. Pts preference is to leave the hospital and elects to follow up in the outpatient setting rather than stay and have medical workup. Will discharge against medical advice and pt encouraged to return to ED immediately should they change their mind regarding care or if any new concerning symptoms arise. Disposition - Disposition Referrals: [facility] at [facility] [Outside] Stuart Calvert MD [Staff Provider] - Disposition: AGAINST MEDICAL ADVICE Disposition Time: 17:00 Condition: STABLE Additional Instructions: Return to ER if you wish to be re-evaluated or if new/worsening symptoms arise Ibuprofen/Tylenol for pain Followup with primary doctor today Followup with GI within 2 days Instructions: Acute Abdomen (Belly Pain), Adult (DC), Nausea and Vomiting, Adult, Lipase Blood Test, Leaving Against Medical Advice Forms: [facility] ([place]) - Clinical Impression Clinical Impression: Elevated lipase, Left against medical advice, Abdominal pain, Vomiting - 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 - Scribe Statement The provider has reviewed the documentation as recorded by the Scribe (Wade Owens) All medical record entries made by the Scribe were at my direction and personally dictated by me. I have reviewed the chart and agree that the record accurately reflects my personal performance of the history, physical exam, medical decision making, and the department course for this patient. I have also personally directed, reviewed, and agree with the discharge instructions and disposition.
[2018-09-27 11:13] LABS: BASO % 0.6 % (0.0-2.0); EOS # 0.1 K/uL (0.0-0.7); EOS % 1.4 % (0.0-4.0); HEMOGLOBIN 17.3 g/dL (12.0-18.0); LYMPH # 3.2 K/uL (1.0-4.3); LYMPH % 43.4 % (20.0-40.0); MEAN CELL VOLUME 92.6 fL (80.0-94.0); MEAN CORPUSCULAR HEMOGLOBIN 31.7 pg (27.0-31.0); MEAN CORPUSCULAR HGB CONC 34.2 g/dL (33.0-37.0); MEAN PLATELET VOLUME 7.9 fL (7.2-11.7); MONO # 0.3 K/uL (0.0-0.8); MONO % 4.5 % (0.0-10.0); NEUT # 3.7 K/uL (1.8-7.0); NEUT % 50.1 % (50.0-75.0); NRBC % 0.1 % (0.0-2.0); RBC 5.47 Mil/uL (4.40-5.90); RED CELL DISTRIBUTION WIDTH 13.6 % (11.5-14.5); WHITE BLOOD COUNT 7.3 K/uL (4.8-10.8)
[2018-09-27] MEDS ORDERED: Sodium Chloride 0.9% 1,000 ML IV ONE (11:16)
[2018-09-27 11:19] LABS: SQUAMOUS EPITHIAL < 1 /hpf (0-5); URINE BILIRUBIN NEGATIVE (NEGATIVE); URINE BLOOD NEGATIVE (NEGATIVE); URINE CLARITY Clear (Clear); URINE COLOR Yellow (YELLOW); URINE GLUCOSE (UA) NORMAL (Normal); URINE HYALINE CAST 0-2 /lpf (0-2); URINE LEUKOCYTE ESTERASE NEG Leu/uL (Negative); URINE PROTEIN 1+ mg/dL (NEGATIVE); URINE UROBILINOGEN NORMAL mg/dL (0.2-1.0)
[2018-09-27 11:24] LABS: ALB/GLOB RATIO 1.3 (1.0-2.1); ALBUMIN 4.8 g/dL (3.5-5.0); ALT/SGPT 54 U/L (21-72); AST/SGOT 34 U/L (17-59); BLOOD UREA NITROGEN 12 mg/dL (9-20); GFR NON-AFRICAN AMERICAN > 60; LIPASE 788 U/L (23-300)
--- NOTE | 2018-09-27 11:29 | RAD ---
HISTORY: cough COMPARISON: Chest x-ray 02/02/18 TECHNIQUE: Chest PA and lateral FINDINGS: LUNGS: No focal consolidation. Please note that chest x-ray has limited sensitivity for the detection of pulmonary masses. PLEURA: No significant pleural effusion identified. No definite pneumothorax . CARDIOVASCULAR: Heart size appears within limits. No atherosclerotic calcification present. OSSEOUS STRUCTURES: No acute osseous abnormality identified. VISUALIZED UPPER ABDOMEN: Unremarkable. OTHER FINDINGS: None. IMPRESSION: No focal consolidation.
[2018-09-27] MEDS ORDERED: Iodixanol 320 MG/ML 100 ML BOTTLE IV ONE (15:07)
--- NOTE | 2018-09-27 16:33 | CT ---
Date of service: 09/27/2018 PROCEDURE: CT Abdomen and Pelvis with contrast HISTORY: Generalized abdominal pain, vomiting COMPARISON: Comparison made with prior CT scan the abdomen and pelvis 02/01/2018. TECHNIQUE: Contiguous helical/transaxial sections of the abdomen pelvis performed following intravenous injection of approximately 100 cc Visipaque 320 contrast material. Additional 2D sagittal and coronal reformats generated Radiation dose: Total exam DLP = 1141.47 mGy-cm. This CT exam was performed using one or more of the following dose reduction techniques: Automated exposure control, adjustment of the mA and/or kV according to patient size, and/or use of iterative reconstruction technique. FINDINGS: LOWER THORAX: Heart is within range of normal. No significant pericardial effusion. Small hiatal hernia. Mild passive atelectasis both posterior lower lung raines some nodular pleural thickening right middle lobe region.. LIVER: The liver is enlarged measuring over 20 cm in CC dimension. Mild fatty hepatic infiltration.. GALLBLADDER AND BILE DUCTS: Gallbladder is incompletely distended which presumably accounts for thick-walled appearance. Findings likely due to nonfasting state. Clinical correlation recommended. PANCREAS: Pancreas appears atrophic and fatty replaced. No pancreatic mass collection or calcification. SPLEEN: Unremarkable. ADRENALS: No adrenal lesions. KIDNEYS AND URETERS: Kidneys demonstrate relatively symmetric nephrograms with no evidence of nephrolithiasis or hydronephrosis VASCULATURE: Unremarkable. No aortic aneurysm. No aortic atherosclerotic calcification or mural plaque present. BOWEL: . Evaluation of the bowel is somewhat limited due to the lack of oral contrast material. Stomach is distended with food debris liquid and air. Visualized loops of small bowel exhibit normal contour and caliber. No evidence of acute mechanical bowel obstruction. Stool and air seen throughout the large bowel. There does appear to be a few scattered colonic diverticula seen along the sigmoid colon however no radiographic evidence of acute diverticulitis. APPENDIX: Appendectomy. PERITONEUM: Unremarkable. No free fluid. No free air. Bilateral fat containing umbilical hernias LYMPH NODES: Unremarkable. No enlarged lymph nodes. BLADDER: The urinary bladder is physiologically distended. No evidence of intraluminal gallbladder calculi REPRODUCTIVE: Unremarkable. BONES: No mild multilevel degenerative spondylosis of the lower thoracic and lumbar spine. OTHER FINDINGS: None. IMPRESSION: Hepatomegaly with mild fatty hepatic infiltration. No acute intra abdominal pathology. Gallbladder incompletely distended likely due to nonfasting state. . Appendectomy.
[2018-09-27 17:36] VITALS: BP 112/76; PULSE 86; TEMP 98
[2018-09-27 17:49] LABS: INR 1.1; PROTHROMBIN TIME 12.1 SECONDS (9.7-12.2)
[2018-09-29 23:22] VITALS: O2SAT 98
== END 2018-09-27 17:36 | disposition left against medical advice (07) ==
LOC: C.ER 09:45
DX: R10.33 Periumbilical pain (principal); R11.10 Vomiting, unspecified; R74.8 Abnormal levels of other serum enzymes
CPT/HCPCS: 71046; 74177; 80053; 81001; 83690; 85025; 85610; 85730; 96361; 96374; 96375; 99285; J1885; J2405; J7030; Q9967